=== PATIENT | female | born 1955 | race Caucasian/White ===

== ENCOUNTER 2020-01-15 08:18 | Outpatient (CLI) | payer OTHER, SELFPAY ==
[2020-01-15 08:57] LABS: Creatinine Urine 268.5 mg/dL
[2020-01-15 09:00] LABS: Basophils Absolute Auto 0.1 K/mm3 (0.0-0.1); Eosinophils Absolute Auto 0.3 K/mm3 (0-0.3); Hematocrit 48.5 % (37.0-47.0); Hemoglobin 16.9 g/dL (12.0-15.0); Immature Granulocyte Absolute 0.05 K/mm3 (0.00-0.031); Immature Granulocyte Percent A 0.6 % (0-0.5); Lymphocytes Absolute Auto 2.08 K/mm3 (0.9-3.2); Lymphocytes Percent Auto 25.3 % (18.3-44.2); Mean Corpuscular HGB Conc 34.8 g/dl (32-36); Mean Corpuscular Hemoglobin 30.8 pg (26-34); Mean Corpuscular Volume 88.3 fl (80-100); Mean Platelet Volume 9.8 fl (7.4-10.4); Monocytes Absolute Auto 0.6 K/mm3 (0.1-0.6); Monocytes Percent Auto 7.3 % (2.6-8.5); Neutrophils Absolute Auto 5.2 K/mm3 (1.3-6.7); Neutrophils Percent Auto 62.8 % (45.5-73.1); Platelet Count Result 339 k/mm3 (150-375); Red Blood Count 5.49 M/mm3 (4.2-5.4); Red Cell Distribution Width 12.3 % (11.5-14.5); White Blood Count 8.2 K/mm3 (4.5-10.0)
[2020-01-15 09:02] LABS: MALB Creatinine Ratio 56.4 mg/g (0-30); Microalbumin Urine Random 151.5 mg/L (0-16.7)
[2020-01-15 09:11] LABS: Hemoglobin A1C 9.6 % (<5.7)
[2020-01-15 09:12] LABS: Alanine Aminotransferase 12 U/L (4-35); Alkaline Phosphatase 97 U/L (38-126); Aspartate Amino Transferase 20 U/L (14-36); Bilirubin,Total 0.9 mg/dL (0.2-1.3); Blood Urea Nitrogen 13 mg/dL (7-17); Calcium 8.2 mg/dL (8.4-10.2); Carbon Dioxide 32 mmol/L (22-30); Chloride 92 mmol/L (98-107); Cholesterol 214 mg/dL (0-200); Creatine Kinase 54 U/L (30-135); Estimated Glomerular Filt Rate > 60; Glucose 285 mg/dL (65-105); HDL Direct 46 mg/dL; Potassium 3.3 mmol/L (3.4-5.0); Sodium 134 mmol/L (137-145); Triglycerides 227 mg/dL (<150); Uric Acid 6.1 mg/dL (2.5-7.5)
[2020-01-15 09:19] LABS: LDL Cholesterol Direct 132 mg/dL
[2020-01-15 10:03] LABS: Vitamin D 25 Hydroxy < 12.8 ng/mL
[2020-01-15 11:28] LABS: Free T4 Free Thyroxine Reflex 1.19 ng/dL (0.78-2.19)
[2020-01-15 12:45] LABS: Total Triiodothyronine (T3) 3.01 NG/ML (0.97-1.69)
[2020-01-15 15:52] LABS: Add Urine Microscopic? YES; Appearance Urine Clear (Clear); Bacteria Urine Trace /hpf; Bilirubin Urine Negative (Negative); Blood Urine Negative (Negative); Color Urine Yellow (Yellow); Glucose Urine UA 3+ mg/dL (Negative); Ketones Urine Negative (Negative); Leukocyte Esterase Ur Negative LEU/UL (Negative); Mucus Urine Rare /lpf; Nitrate Urine Negative (Negative); Protein Urine Negative (Negative); RBC Urine 0-2 /hpf (0-2); Specific Grav Ur 1.022 (1.001-1.035); Squamous Epithelial Cell Urine Few /hpf (Few); Urobilinogen Urine Negative mg/dL (<2.0)
== END 2020-01-15 08:19 | disposition home or self-care (01) ==
PROVIDERS: PCP Internal Medicine; Visit Provider Internal Medicine
DX: E78.00 Pure hypercholesterolemia, unspecified (principal); E11.9 Type 2 diabetes mellitus without complications; I10 Essential (primary) hypertension
CPT/HCPCS: 36415; 80053; 80061; 81001; 82043; 82306; 82550; 83036; 84439; 84443; 84480; 84550; 85025

== ENCOUNTER 2020-01-28 14:24 | Outpatient (CLI) | payer OTHER, SELFPAY ==
--- NOTE | ~2020-01-28 | MR_ITS ---
EXAMINATION: MR lumbar spine wo con DATE: 01/28/2020 16:39 INDICATION: Chronic bilateral low back pain with sciatica TECHNIQUE: Magnetic resonance imaging (MRI) of the lumbar spine was performed without intravenous con trast. Sequences included sagittal T2-weighted FSE, sagittal T2-weighted FS FSE, sagittal T1-weighted FSE, and axial T2-weighted FSE. COMPARISON: None FINDINGS: 2 mm retrolisthesis L5 on S1. Vertebral body heights are normal. Diffuse heterogeneous pattern of red and yellow marrow signal with T1 hyperintense hemangioma at L4. Mild disc desiccation without disc h eight loss at L2-L3 through L5-S1. The conus medullaris terminates at L1-L2. There is normal signal i n the caudal spinal cord. Paravertebral soft tissues are unremarkable. The following disc levels are specifically discussed: T12-L1: The disc does not extend beyond the endplate margin. There is minimal bilateral facet joint o steoarthritis. There is no neural foraminal stenosis. There is no central canal stenosis. L1-L2: The disc does not extend beyond the endplate margin. There is minimal bilateral facet joint os teoarthritis. There is no neural foraminal stenosis. There is no central canal stenosis. L2-L3: Disc is mildly bulging. There is mild right and minimal left facet joint osteoarthritis. There is mild bilateral neural foraminal stenosis. There is mild central canal stenosis. L3-L4: Disc is mildly bulging. There is hypertrophy of the ligamentum flavum. There is moderate bila teral facet joint osteoarthritis. There is mild bilateral, left greater than right neural foraminal s tenosis. There is moderate central canal stenosis. L4-L5: Disc is bulging with superimposed left foraminal zone annular fissure and disc extrusion. Ther e is hypertrophy of the ligamentum flavum. There is severe bilateral facet joint osteoarthritis. Ther e is mild right and moderate left neural foraminal stenosis. There is moderate to severe central almita l stenosis with minimal CSF signal surrounding the centrally clustered nerve roots. L5-S1: Annular fissure and broad-based disc extrusion extending from foraminal zone to foraminal zone with disc material extending up to 4 mm caudal to the level of the superior endplate of S1. There is moderate left and severe right facet joint osteoarthritis. There is mild left and moderate to severe right neural foraminal stenosis. There is mild central canal stenosis as well as mild stenosis of th e right lateral recess with some mass effect upon the traversing right S1 nerve roots. IMPRESSION: 1. Moderate lumbar spondylosis. Reviewed, dictated and finalized at location A.
== END 2020-01-28 14:25 | disposition home or self-care (01) ==
PROVIDERS: PCP Internal Medicine; Visit Provider Internal Medicine
DX: M54.42 Lumbago with sciatica, left side (principal); M54.41 Lumbago with sciatica, right side; G89.29 Other chronic pain; M47.816 Spondylosis without myelopathy or radiculopathy, lumbar region
CPT/HCPCS: 72148

== ENCOUNTER 2020-03-06 13:00 | Outpatient (RCR) | payer OTHER, SELFPAY ==
--- NOTE | 2019-12-13 14:08 | PTOPEVAL ---
PHYSICAL THERAPY EVALUATION AND PLAN OF CARE 12-13-2019 The PT evaluation was completed for the diagnosis of low back pain. The plan of treatment is scheduled for 2x/week for 4 weeks. Thank you for referring Ms. Marques to [facility]. Please review, sign, date and return this plan of care LIZBETH. I agree with and certify that the following plan of care is medically necessary. Referring Physician Date Attending Provider: Dr. Marcso Andrade *PT Outpatient Evaluation Start: 12/13/19 13:10 Freq: Status: Active Protocol: Document 12/13/19 13:11 REGINA (Rec: 12/13/19 14:01 REGINA [id number]) Outpatient Past Medical History Past Medical History Source of Past Medical History Patient Neurological History Hx Neurological Disorders No Significant History Cardiovascular History Hx Hypertension Yes: meds control Respiratory History Hx Respiratory Disorders No Significant History Gastrointestinal History Hx Gall Bladder Disease Yes: gall bladder removed Hx Gastric Bypass Surgery Yes: 1980 Genitourinary History Hx Genitourinary Disorders No Significant History Musculoskeletal History Hx Joint Replacement Yes: R TKR x 2;continues to have knee pain Hx Orthopedic Surgery Yes: L knee arthroscopy Endocrine History Hx Diabetes Yes: little numbness B feet/ neuropathy Other History Hx Other Surgeries Yes: obesity Evaluation Information Problem Diagnosis low back pain Onset Aug 2019 Subjective Information gradual increase in pain, no Query Text:As Reported By Patient/ trauma or injury to back; Family Diagnostic Tests X-Rays For This Problem Yes: per pt severe arthritis of back and pelvis Previous Treatments Previous Treatments For This Problem no PT for LBP Prior Level of Function Activity Level (Last 3 Months) 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
--- NOTE | 2020-01-10 14:41 | PTOPEVAL ---
PHYSICAL THERAPY RE-EVALUATION 01-10-2020 Ms. Marques has received 7 PT sessions, from December 12 to today, for the diagnosis of back pain. She called/canceled one appointment due to issues with her teeth. Compared with the initial eval: she has improved slightly with the strength of her R and L LE's and trunk; flexibility has improved- standing trunk extension no longer increases her pain, R hamstring length, L piriformis length and L anterior hip/quad length; reported pain rating at the highest rating has decreased from 10/10 to 5/10; reported sleeping tolerance is less, with walking and standing tolerances the same; She continues to be very guarded with movements and tightness with lumbar and hip motions. Her R knee continues to be painful. There is tenderness and spasms with palpation over L quadratus and B lower lumbar areas. Deana Lawrence has a follow up appointment next week. She wants to discuss her status with you and determine if PT is to continue or not. If PT is to continue, please give her a new script. Thank you for referring Jazmin Marques to [facility]. Please review, sign, date and return this progress report LIZBETH. I agree with and certify that the following plan of care is medically necessary. Referring Physician Date Attending Provider: Dr. Marcos Andrade Document 01/10/20 14:02 REGINA (Rec: 01/10/20 14:40 REGINA [id number]) Assessment Status Re-evaluation Subjective Information Deana Lawrence reports: at first, Query Text:As Reported By Patient/ therapy was helping, now not Family making a differnece with her back pain; is seeing the dr next week for a follow up and wants to see what he wants her to do; will let us know if he wants her to continue therapy or not; Pain Assessment Timing of Pain Assessment Timing of Pain Assessment Assessment Pain Scale Pain Scale Used Numeric (1 - 10) Self Report Pain Assessment Bilateral Back Reported Pain Level 4 Pain Description Tightness Pain Frequency Chronic Other Pain Description R and L lower lumbar Lowest Pain Intensity 4 Greatest Pain Intensity 5 Pain Aggravating Factors Exercise/Activity,Lifting Other Pain Aggravating Factors report tolerances:[id number] sec;walk 150';sleeping 2-3 hr /time Pain Relief Interventions Used By Ice,Inactivity/Rest Patient Other Alleviating Interventions sleep on L side; electrical stim; ALSO- continue to have R knee pain Additional Pain Comments have infected tooth,with pain and to have tooth pulled next week Pain Score Pain Score 4: Self Report Additional Pain Score Comments Electric
--- NOTE | 2020-01-22 11:34 | PTOPEVAL ---
PHYSICAL THERAPY RE-EVALUATION AND UPDATED PLAN OF CARE 01-22-2020 PT orders were received to continue PT treatments. Refer to the reevaluation dated 01-10-2020 for objective data for Ms. Marques. PT is to continue 2x/week for 4 weeks. Thank you for referring Jazmin Marques to [facility]. Please review, sign, date and return this plan of care LIZBETH. I agree with and certify that the following plan of care is medically necessary. Referring Physician Date Attending Provider: Dr. Marcos Andrade Document 01/22/20 10:47 REGINA (Rec: 01/22/20 11:30 REGINA [id number]) Therapy Assessment Status Assessment Status Assessment Status Re-evaluation Subjective Information Deana Lawrence reports: when saw lavonne Query Text:As Reported By Patient/ -going to schedule MRI, depend Family upon results-pain management or surgeon referral; started flexeril- helping pain; have been doing exercises and stretches at home; feels standing up straighter. Pain Assessment Timing of Pain Assessment Timing of Pain Assessment Assessment Pain Scale Pain Scale Used Numeric (1 - 10) Self Report Pain Assessment Bilateral Back Reported Pain Level 3 Pain Description Tightness Radicular Pain Location L lumbar tighter than R; back is tender; Pain Frequency Chronic Lowest Pain Intensity 2 Greatest Pain Intensity 3 Pain Relief Interventions Used By Ice,Medication Patient Other Alleviating Interventions flexeril, new med, ordered up to 3x/day, only taking 1x/, helping pain some Additional Pain Comments with sleeping, 2-3 hr at time, but getting better, last night was 5 hr Pain Score Pain Score 3: Self Report Lower Extremity Range of Motion General Lower Extremity Range of Motion Gross Lower Extremity Range of Motion supine stretching: hip flexion Comments , piriformis, ant hip R and L; Lower Extremity Muscle Strength Testing General Lower Extremity Strength Gross Lower Extremity Strength -recumbant stepper, all 4 extremities, resistance level 2, 5 minutes; - // bars: wobble board for posture education/ trunk stabilization - sit on ball: posture, pelvic circles, knee ext, hip flexion, with 1 UE support on mat - supine with ball under LE's:
--- NOTE | 2020-02-18 13:17 | PTOPEVAL ---
PHYSICAL THERAPY RE-EVALUATION AND UPDATED PLAN OF CARE 02-18-2020 Ms. Marques has received 15 PT sessions, from December 14 to today, for the diagnosis of back pain. Compared to the last reeval on 01-10-20: pain rating is worse at the high rating; reported sleeping tolerance is the same and standing tolerance 15 seconds longer; walking tolerance is the same; mat exercise reps for R and L hip and trunk have increased; B UE lifting increased by 2 #; flexibility with R and L hamstring, piriformis and ant hip/quad are the same; she continues to complain of R knee pain and muscle spasms over L lumbar area. Electrical stim, rest and ice are the main methods for her pain management. PT is to continue 2x/week for 4 weeks, to decrease her pain and increase flexibility and strength. Thank you for referring Jazmin Marques to [facility]. Please review, sign, date and return this plan of care LIZBETH. I agree with and certify that the following plan of care is medically necessary. Referring Physician Date Attending Provider: Dr. Marcos Andrade *PT Outpatient Re-Evaluation Document 02/18/20 12:30 REGINA (Rec: 02/18/20 13:17 REGINA [id number]) Therapy Assessment Status Assessment Status Assessment Status Re-evaluation Outpatient Past Medical History Past Medical History Source of Past Medical History Patient Neurological History Hx Neurological Disorders No Significant History Cardiovascular History Hx Hypertension Yes: meds control Respiratory History Hx Respiratory Disorders No Significant History Gastrointestinal History Hx Gall Bladder Disease Yes: gall bladder removed Hx Gastric Bypass Surgery Yes: 1980 Genitourinary History Hx Genitourinary Disorders No Significant History Musculoskeletal History Hx Joint Replacement Yes: R TKR x 2; Hx Orthopedic Surgery Yes: L knee arthrscopy Endocrine History Hx Diabetes Yes: little numbness B feet/ neuropathy Other History Hx Other Surgeries Yes: obesity Evaluation Information Problem Subjective Information Jazmin reports: do not yet Query Text:As Reported By Patient/ have appointment for pain Family management; pain never goes away--always hurts; am doing exercises at home; Pain Assessment Timing of Pain Assessment Timing of Pain Assessment Assessment Pain Scale Pain Scale Used Numeric (1 - 10) Self Report Pain Assessment Bilateral Back Reported Pain Level 4 Pain Description Tightness Pain Frequency Chronic Other Pain Description L > R lumbar- sacral Lowest Pain Intensity 3 Greatest Pain Intensity 8 Other Pain Aggravating Factors tolerances:stand less than 1 min;walk 150';sleep 2-3 hr/ time Other Alleviating Interventions out of prescription meds for
--- NOTE | 2020-02-28 09:47 | PCPTNOTE ---
pt called and cancelled to to illness .
--- NOTE | 2020-03-11 08:36 | PCPTNOTE ---
Patient called & cancelled scheduled appointment this date due to having insurance issues.
--- NOTE | 2020-03-13 12:47 | PCPTNOTE ---
This treatment is being continued on visit number [id number]. Please see documentation on both accounts to view progress. Completed interventions, outcomes, and problems have been marked as Inactive to facilitate the copying of the Care plan routine for recurring accounts.
== END 2020-03-12 23:59 | disposition home or self-care (01) ==
LOC: ANHPT 13:00
DX: M54.5 Low back pain (principal); G89.29 Other chronic pain
CPT/HCPCS: 97012; 97014; 97110; 97140; 97161; G0283

== ENCOUNTER 2020-03-17 16:02 | Outpatient (RCR) | payer OTHER, SELFPAY ==
--- NOTE | 2020-03-13 12:51 | PCPTNOTE ---
pt called and canceled today's appt;
--- NOTE | 2020-03-13 12:51 | PCPTNOTE ---
This treatment is being continued from visit number [id number]. Please see documentation on both accounts to view progress.
--- NOTE | 2020-03-17 09:55 | PCPTNOTE ---
pt called and canceled today's reeval, due to issues with her insurance; called pt, she is continuing to do her home exercises and is awaiting her new insurance to initiate coverage. She has not been able to see her dr either; discussed when she sees dr--determine if need more PT or not.
--- NOTE | 2020-04-08 08:52 | PCPTNOTE ---
PHYSICAL THERAPY DISCHARGE 04-08-2020 Attending Provider: Dr. Marcos Andrade Patient:Jazmin Marques Date of :1955 Ms. Marques has not returned for any further treatments since 03/06/2020, therefore she will be discharged at this time. She received 17 PT sessions, from December 12 to March 06 for the diagnosis of chronic low back pain and bilateral sciatica. Her insurance changed and she called and canceled PT treatments. The goals were not assessed. Thank you for referring Deana Lawrence to [facility]. Please review, sign, date and return this discharge summary LIZBETH. I have been updated about the patient's current status and I agree with discharge from the above service at this time. Referring Physician Date
== END 2020-04-08 14:22 | disposition home or self-care (01) ==
LOC: ANHPT 16:02
PROVIDERS: PCP Internal Medicine
DX: M54.41 Lumbago with sciatica, right side (principal); M54.42 Lumbago with sciatica, left side; G89.29 Other chronic pain
CPT/HCPCS: 99199

== ENCOUNTER 2021-04-08 14:51 | Outpatient (CLI) | payer MEDICARE, SELFPAY ==
--- NOTE | ~2021-04-08 | MM_ITS ---
EXAMINATION: MM screening lizzie BI w lainey HISTORY: Screening TECHNIQUE: Craniocaudal and mediolateral oblique 3-D tomosynthesis images were obtained and synthetic 2-D images were generated. CAD analysis was submitted and interpreted. COMPARISON: Comparison to multiple prior studies sequentially, with oldest reviewed study dated 12/02. BREAST PARENCHYMAL COMPOSITION: Breast composed of scattered areas of fibroglandular density. FINDINGS: There is a new cluster of indeterminate calcifications in the upper outer quadrant of the r ight breast, middle depth. The left breast is stable without evidence for malignancy. IMPRESSION: 1. Cluster of indeterminate calcifications upper outer quadrant of the right breast. 2. Magnification views are recommended. BI-RADS Category 0: Incomplete: Needs additional imaging evaluation. Reviewed, dictated and finalized at location A. IMPRESSION: 1. Cluster of indeterminate calcifications upper outer quadrant of the right br east. 2. Magnification views are recommended. BI-RADS Category 0: Incomplete: Needs additional imaging evaluation.
== END 2021-04-08 14:52 | disposition home or self-care (01) ==
LOC: ANHIMG 14:52
PROVIDERS: PCP Internal Medicine; Visit Provider Internal Medicine
DX: Z12.31 Encounter for screening mammogram for malignant neoplasm of breast (principal); R92.8 Other abnormal and inconclusive findings on diagnostic imaging of breast
CPT/HCPCS: 77063; 77067

== ENCOUNTER 2021-04-13 12:48 | Outpatient (CLI) | payer MEDICARE, SELFPAY | END 2021-04-13 12:49 | disposition home or self-care (01) | LOC: ANHAUDIO 12:50 | PROVIDERS: PCP Internal Medicine; Visit Provider Internal Medicine | DX: H90.0 Conductive hearing loss, bilateral (principal) | CPT/HCPCS: 92557; 92567 ==

== ENCOUNTER 2021-04-16 10:00 | Outpatient (CLI) | payer MEDICARE, SELFPAY ==
[2021-04-16 10:24] LABS: Anion Gap 12 mmol/L (8-16); Blood Urea Nitrogen 17 mg/dL (7-17); Calcium 7.6 mg/dL (8.4-10.2); Carbon Dioxide 30 mmol/L (22-30); Chloride 98 mmol/L (98-107); Estimated Glomerular Filt Rate 56; Glucose 191 mg/dL (65-110); Potassium 3.5 mmol/L (3.4-5.0); Sodium 140 mmol/L (137-145)
== END 2021-04-16 10:01 | disposition home or self-care (01) ==
LOC: ANHSURGERY 10:04
PROVIDERS: Anesthesiology; PCP Internal Medicine; Visit Provider Surgery
DX: Z01.812 Encounter for preprocedural laboratory examination (principal); E11.9 Type 2 diabetes mellitus without complications
CPT/HCPCS: 36415; 80048

== ENCOUNTER 2021-04-27 00:57 | Day surgery (SDC) | payer MEDICARE, SELFPAY ==
[2021-04-14 11:23] VITALS: BMI 41.6
[2021-04-27 10:17] VITALS: BP 122/75; PULSE 105; RESP 20; TEMP 36.4; O2SAT 96; BMI 40.7
[2021-04-27 10:36] LABS: Glucose Point of Care 196 mg/dl (65-105)
[2021-04-27] MEDS: LACTATED RINGERS 1,000 ML 30 ML IV CONT (10:36)
--- NOTE | 2021-04-27 10:57 | WPDANESEPPF ---
Anes - Initial Pre Proc Eval Procedure: Operation Date: 04/27/21 12:00 Proposed Procedures p Excision of Lipoma Inner Right Upper Arm - Gurvinder Fairchild MD Date/Time: 04/27/21 10:57 Surgeon: Gurvinder Fairchild MD Pre Op Diagnosis: right upper lipoma 5x3 cm Patient Data Age: 65 Gender: F Height: 1.63 m Weight: 107.6 kg Last Vital Signs Temp 36.4 C L 04/27/21 10:17 Pulse 105 H 04/27/21 10:17 Resp 20 04/27/21 10:17 BP 122/75 04/27/21 10:17 Pulse Ox 96 04/27/21 10:17 Allergies Allergy/AdvReac Type Severity Reaction Status Date / Time chlorzoxazone Allergy Unknown Rash, HIVES Verified 04/27/21 10:06 Home Medications Medication Instructions Recorded Confirmed Type duloxetine 60 mg capsule,delayed 60 mg PO HS 03/31/21 04/27/21 History release furosemide 40 mg tablet 40 mg PO QAM 03/31/21 04/27/21 History gabapentin 300 mg capsule 300 mg PO TID 03/31/21 04/27/21 History metformin 500 mg tablet,extended 1,500 mg PO QAM 03/31/21 04/27/21 History release 24hr potassium chloride 20 mEq 20 meq PO DAILY 03/31/21 04/27/21 History tablet,extended release diphenhydramine HCl [Benadryl] 25 mg PO TID PRN 04/14/21 04/27/21 History metoprolol succinate 50 mg PO QAM 04/14/21 04/27/21 History Laboratory Tests 04/27/21 10:34 POC Capillary Glucose 196 mg/dl H mg/dl (65-105) Patient hx anesthesia problems: none Family hx anesthesia problems: none Results Review: All pre-operative results and documents have been reviewed as part of the pre-operative evaluation. [facility] Past Medical History Medical History Depression Diabetes HTN (hypertension) Surgical History Surgical History H/O: hysterectomy History of appendectomy History of cholecystectomy History of tonsillectomy and adenoidectomy History of total right knee replacement S/P gastroplasty Family History Family History Father Hypertension Mother Liver cancer Sibling Hypertension Unknown Heart disease Kidney disease Social History Social History Social History: Caffeine use:none Smoking status: Never smoker Alcohol intake: never Substance use: never Living arrangements: with family Additional living arrangements comments: S.O. Additional occupation/education comments: Retired R.N. Spiritual care concerns: No Anes - Eval Final PreProcedure Day of Procedure 04/27/21 10:57 Patient weight: morbidly obese Heart: regular rate and rhythm Lungs: clear to auscultation Airway: Mallampati scale class II Neurological: alert and oriented Last oral intake: >/= 8 hours ASA classification: III Emergent: no Anesthetic plan: proceed Anesthesia type and monitoring: general LMA and standard monitoring Results Review: All pre-operative results and documents have been reviewed as part of the pre-operative evaluation. Informed Consent: The patient's anesthetic plan and its attendant risks and benefits were discussed with the patient/family/POA. Questions were solicited and answers provided to the satisfaction of the patient/family/POA.
--- NOTE | 2021-04-27 12:00 | SUR.PREOP ---
DR LUCAS HERE, ORDERED ANCEF 2GM
--- NOTE | 2021-04-27 12:04 | WPDHPUPDATE1 ---
History and Physical Update Update Date/Time: 04/27/21 12:04 History and Physical has been reviewed, including an updated exam of the patient. There are NO changes in the patient's condition. Risks, benefits, and alternatives have been discussed and questions answered. Patient agrees to proceed with procedure.
[2021-04-27] MEDS: ceFAZolin 2 GM/D5W 50 ML 2 GM/50 ML BAG IVPB (12:11)
[2021-04-27] MEDS: LIDO 2%/EPINEPHRINE 1:100,000 20 ML VIAL INFILTRATE (13:07)
[2021-04-27 13:32] VITALS: BP 155/81; PULSE 96; RESP 14
[2021-04-27 13:46] LABS: Glucose Point of Care 178 mg/dl (65-105)
--- NOTE | 2021-04-27 13:53 | P.OP_ITS ---
Procedure Note - Detailed Date of Procedure 04/27/21 Pre-op Diagnosis right upper lipoma 10 x 3.5 x 2.5 cm ( Subcutaneous mass ) Post-op Diagnosis same Procedure Performed Excision of subcutaneous mass upper medial right arm Surgeon Gurvinder Fairchild MD Veneer Press Operator BRISA Gerber, OR 1st assist Anesthesia general (GIVS) and local (2% xylocaine with epinephrine) Description of Procedure The patient was placed in the supine position. After a surgical time out confirming patient and procedure the patient was prepped and draped in the usual sterile fashion. Local anesthetic was administered subcutaneously along the line of proposed incision on the upper medial right arm. The lesion was somewhat indistinct with palpation but eventually was excised to measure 10.5 x 3.7 x 2.5 cm in size. It was a very lobulated lipoma within her subcutaneous fat of the thick portion of the right upper inner arm. A direct incision was made over the lesion/mass and I dissected down to the deep subcutaneous tissues and then completely excised the lesion using Bovie cautery. Bleeding was also controlled with electrocautery. The wound was closed in three layers. An un-dyed 2-0 Vicryl deep subcutaneous interrupted sutures, followed by some 3-0 deep dermal sutures and then followed by skin closure in a running fashion with a 4-0 undyed Monocryl running subcuticular closure was completed. Surgical glue applied as dressing. In order to put slight compression on it an David wrap was wrapped gently around it after the glue dried and a piece of Telfa, nonstick bandage, was laid on the wound prior to applying the David wrap. Some tape was applied to the patient's Right shoulder and down onto the David wrap to keep it from sliding down. Patient tolerated this well. Implants none Estimated Blood Loss -2.0 Drains No Packing No Pathology yes ( subcutaneous mass from upper inner right arm) Complications No immediate complications Condition stable Disposition same day
[2021-04-27 14:00] VITALS: BP 115/68; PULSE 93
--- NOTE | 2021-04-27 14:28 | SUR.PHASEII ---
Patient's vitals are stable. She is dressed and unhooked from the monitors just waiting on her ride.
== END 2021-04-27 14:33 | disposition home or self-care (01) ==
PROVIDERS: PCP Internal Medicine; Visit Provider Surgery
PROC: (CPT 24071; principal; 2021-04-27 12:00)
DX: D17.21 Benign lipomatous neoplasm of skin and subcutaneous tissue of right arm (principal); Z79.84 Long term (current) use of oral hypoglycemic drugs; F32.9 Major depressive disorder, single episode, unspecified; E11.9 Type 2 diabetes mellitus without complications; I10 Essential (primary) hypertension; E66.01 Morbid (severe) obesity due to excess calories; Z68.41 Body mass index [BMI] 40.0-44.9, adult
CPT/HCPCS: 24071; 36415; 80048; 82948; 88304; J0690; J2250; J2704; J3010; J7120

== ENCOUNTER 2021-05-21 12:56 | Outpatient (CLI) | payer MEDICARE, SELFPAY ==
--- NOTE | ~2021-05-21 | MMUS_ITS ---
EXAMINATION: MM diagnostic mammo unilat RT, US breast RT limited HISTORY: Cluster of indeterminate microcalcifications reported in upper outer quadrant of right breas t TECHNIQUE: ML view. Magnification ML, MLO and craniocaudal views. CAD analysis was submitted and inte rpreted. High resolution upper outer quadrant right breast ultrasound was performed. COMPARISON: 04/08/2021 bilateral screening mammogram 02/22/2013 bilateral screening mammogram FINDINGS: MAMMOGRAPHIC FINDINGS: There are multiple benign calcifications including calcified microhematomas and secretory calcificati ons right breast, particularly the upper outer quadrant. However, there are some indeterminate subtle grouped small granular appearing microcalcifications in the right upper outer quadrant. Stereotactic biopsy is recommended given the absence of sonographic c orrelate: ULTRASOUND: Upper outer quadrant right breast ultrasound examination reveals no suspicious mass or shadowing, cys t or other significant finding. IMPRESSION: 1. Indeterminate very small granular appearing microcalcifications in the upper outer quadrant of the right breast 2. Stereotactic biopsy is recommended BI-RADS category 4, suspicious findings. Dr. Jansen telephoned the report and surgical biopsy recommendation on 05/13/2021 at 1430 hours to Alfa Smith. Reviewed, dictated and finalized at location A. IMPRESSION: 1. Indeterminate very small granular appearing microcalcifications in the upper outer quadrant of the right breast 2. Stereotactic biopsy is recommended BI-RADS category 4, suspicious findings. Dr. Jansen telephoned the report and surgical biopsy recommendation on 05/13/2021 at 1430 hours to Alfa Smith.
== END 2021-05-21 12:57 | disposition home or self-care (01) ==
PROVIDERS: PCP Internal Medicine; Visit Provider Internal Medicine
DX: R92.1 Mammographic calcification found on diagnostic imaging of breast (principal)
CPT/HCPCS: 76642; 77065

== ENCOUNTER 2021-06-04 10:10 | Outpatient (CLI) | payer MEDICARE, SELFPAY ==
--- NOTE | ~2021-06-04 | MM_ITS ---
MM post biopsy diagnostic RT DATE: 06/04/2021 11:43 INDICATION: Stereotactic biopsy of upper outer quadrant microcalcifications TECHNIQUE: Digital ML and CC exposures following stereotactic biopsy COMPARISON: None FINDINGS: There is a biopsy marker in the area of microcalcifications of interest in the upper outer quadrant of the right breast. IMPRESSION: Successful stereotactic right breast biopsy of upper outer quadrant right breast microcal cifications Reviewed, dictated and finalized at Location A. Reviewed, dictated and finalized at location A. D PROPELLANT PROCESSOR IMPRESSION: Successful stereotactic right breast biopsy of upper outer quadrant right breast microcalcifications
--- NOTE | ~2021-06-04 | MM_ITS ---
EXAMINATION: MM stereotactic bx RT, Specimen Radiograph, Tissue Marker Clip Placement, Unilateral Alexandra mogram DATE: 06/04/2021 11:41 INDICATION: Abnormal mammogram: Upper outer quadrant right breast microcalcifications. TECHNIQUE AND FINDINGS: The risks and potential benefits of the procedure were discussed with the patient and written informe d consent was obtained. Timeout procedure was performed. The patient was placed in the prone position on the dedicated stereotactic table with the right breast in lateromedial compression, and the area of interest was localized and targeted utilizing digital imaging with stereotaxis. After sterile preparation of the skin, 1% lidocaine was utilized for local anesthesia at the skin pun cture site and 1% lidocaine with epinephrine was utilized for deeper local anesthesia/is about the bi opsy site. A 9G [employer] vacuum assisted biopsy needle was advanced to the level of the calcification o f interest from a lateral approach utilizing stereotactic guidance and a total of 13 tissue core biop sies were obtained. A specimen radiograph demonstrates that the calcifications of interest are included within the tissue cores. A tissue marker clip was then placed at the biopsy site. A digital mammographic exposure co nfirmed the successful deployment of the biopsy marker. The needle was removed and hemostasis was ac hieved. A sterile bandage was applied. The patient tolerated the procedure well and there is no sreekanth dence of significant immediate complication. The patient was given verbal as well as written postpro cedural instructions prior to discharge from the department. Tissue cores were submitted to surgical pathology for histologic analysis. A 2-view right unilateral digital mammogram was obtained post procedure, demonstrating the tissue mar ker clip in expected position. IMPRESSION: 1. Successful stereotactic biopsy of upper outer quadrant microcalcifications, followed by tissue m arker clip placement. Please refer to pathology report for histologic analysis. Reviewed, dictated and finalized at [facility]. Reviewed, dictated and finalized at location A. FORMING MACHINE SET UP OPERATOR IMPRESSION: 1. Successful stereotactic biopsy of upper outer quadrant microcalcifications , followed by tissue marker clip placement. Please refer to pathology report f or histologic analysis.
--- NOTE | ~2021-06-04 | MM_ITS ---
MM stereotactic specimen RT DATE: 06/04/2021 11:42 INDICATION: Right upper outer quadrant microcalcifications TECHNIQUE: Single mammographic exposure of stereotactic biopsy specimen tissue COMPARISON: 05/21/2021 diagnostic right mammogram FINDINGS: Numerous microcalcifications of interest are present in the specimen tissue. IMPRESSION: Successful stereotactic biopsy yielding numerous microcalcifications of interest from upp er outer quadrant Reviewed, dictated and finalized at [facility]. Reviewed, dictated and finalized at location A. ESS PREPARER IMPRESSION: Successful stereotactic biopsy yielding numerous microcalcification s of interest from upper outer quadrant
== END 2021-06-04 10:11 | disposition home or self-care (01) ==
PROVIDERS: PCP Internal Medicine; Visit Provider Surgery
DX: R92.8 Other abnormal and inconclusive findings on diagnostic imaging of breast (principal)
CPT/HCPCS: 19081; 77065; 88305; 88342; A4648

== ENCOUNTER 2021-06-15 10:38 | Outpatient (CLI) | payer MEDICARE, SELFPAY ==
--- NOTE | 2021-06-15 10:44 | ECG_ITS ---
Measurements Intervals [place] Rate: 85 P: -2 KS: 125 QRS: 24 QRSD: 85 T: 26 QT: 367 QTc: 438 Interpretive Statements SINUS RHYTHM WITH SINUS ARRHYTHMIA DELAYED PRECORDIAL R/S TRANSITION LOW QRS VOLTAGE IN PRECORDIAL LEADS BASELINE ARTIFACT- I, II, III, AVR, AVL, AVF BORDERLINE ECG Electronically Signed On 06-15-2021 10:55:47 JOB SPOTTER by Wilfredo Honeycutt D.O.
[2021-06-15 11:22] LABS: Alanine Aminotransferase 12 U/L (4-35); Albumin Level 4.1 g/dL (3.5-5.1); Alkaline Phosphatase 85 U/L (38-126); Anion Gap 7 mmol/L (8-16); Aspartate Amino Transferase 21 U/L (14-36); Blood Urea Nitrogen 17 mg/dL (7-17); Calcium 8.4 mg/dL (8.4-10.2); Carbon Dioxide 36 mmol/L (22-30); Chloride 92 mmol/L (98-107); Estimated Glomerular Filt Rate 56; Glucose 204 mg/dL (65-110); Potassium 3.9 mmol/L (3.4-5.0); Sodium 135 mmol/L (137-145)
[2021-06-15 11:32] LABS: Basophils Absolute Auto 0.1 K/mm3 (0.0-0.1); Basophils Percent Auto 1.1 % (0.2-1.2); Eosinophils Absolute Auto 0.4 K/mm3 (0-0.3); Eosinophils Percent Auto 4.4 % (0-4.4); Hematocrit 44.6 % (37.0-47.0); Hemoglobin 15.3 g/dL (12.0-15.0); Immature Granulocyte Absolute 0.04 K/mm3 (0.00-0.031); Immature Granulocyte Percent A 0.4 % (0-0.5); Lymphocytes Absolute Auto 2.16 K/mm3 (0.9-3.2); Lymphocytes Percent Auto 22.6 % (18.3-44.2); Mean Corpuscular HGB Conc 34.3 g/dl (32-36); Mean Corpuscular Volume 90.5 fl (80-100); Mean Platelet Volume 9.8 fl (7.4-10.4); Monocytes Absolute Auto 0.5 K/mm3 (0.1-0.6); Neutrophils Absolute Auto 6.4 K/mm3 (1.3-6.7); Neutrophils Percent Auto 66.5 % (45.5-73.1); Platelet Count Result 388 k/mm3 (150-375); Red Blood Count 4.93 M/mm3 (4.2-5.4); Red Cell Distribution Width 12.5 % (11.5-14.5); White Blood Count 9.6 K/mm3 (4.5-10.0)
== END 2021-06-15 10:39 | disposition home or self-care (01) ==
LOC: ANHSURGERY 10:41
PROVIDERS: PCP Internal Medicine; Visit Provider Surgery
DX: D05.11 Intraductal carcinoma in situ of right breast (principal); I10 Essential (primary) hypertension; Z01.818 Encounter for other preprocedural examination; R94.31 Abnormal electrocardiogram [ECG] [EKG]
CPT/HCPCS: 36415; 80053; 85025; 93005

== ENCOUNTER 2021-06-22 01:18 | Day surgery (SDC) | payer MEDICARE, SELFPAY ==
[2021-06-10 14:20] VITALS: BMI 40.5
--- NOTE | 2021-06-10 14:26 | PC.NURSE ---
Report to the Outpatient Waiting Room, entrance under the green pavilion located off [facility], at time __0900 on date _06/22/21 . OR Time: _1200 . NEEDLE LOC AT 0930 - You and your visitor will be asked a series of questions to screen for COVID 19 for your protection. - A mask is required within the hospital. - Only one visitor is allowed at this time. Patient visitors will be guided where to wait when not with patient. Preoperative COVID Testing Requirements: No COVID Test needed if: (proof is required; if not received patient will have Rapid Test prior to entry) - Patient has received COVID Vaccine at least 14 days prior to procedure date or - Patient has positive COVID test result within last 90 days of surgery date. COVID Test needed if above criteria is not met If not COVID vaccinated a COVID test must be conducted within 72 hours of surgery and patient is asked to isolate self from time of testing until procedure. You will go to the [facility] for your COVID testing. The [facility] is located at the corner of [address] [facility]. You will only be called if COVID results are positive and your surgeon may reschedule your elective surgery date. Patients may have clear liquids (water, carbonated beverages, clear teas, apple juice) until 3 hours prior to surgery with a maximum of 20 ounces. - No food from midnight until time of surgery - Infants may have breast milk until 4 hours before surgery, formula 6 hours prior to surgery. - Children will be allowed to drink immediately following surgery. If applicable, please bring a bottle or sippy cup to assist with drinking. Juice, water, soda, and popsicles are readily available. For infants on formula, please bring formula the day of surgery. Pacifiers are allowed. Take the following medications with a SIP of water the morning of surgery: ___GABAPENTIN,METOPROLOL Medications to discontinue per physician _NONE Date to take last dose Please no make-up, nail maltese, hairspray, perfume, deodorant, or body powder the day of surgery. No jewelry (including any body piercings) or valuables the day of surgery, leave them at home. Please take a shower or bath the night before, or the morning of, surgery with an antibacterial soap. Wear comfortable, loose fitting clothing. Children are encouraged to wear pajamas. - Jewelry must be removed prior to entering the operating room. Rings and piercings that are not removed may be cut off. - The hospital will not accept responsibility for valuables. - Please leave all valuables, including medications, at home the day of surgery. HIBICLENS SHOWER MORNING OF SURGERY If you are going home after surgery, a licensed high lift driver must drive you home. - NO public transportation without another adult. - We recommend that an adult stay with you for 24 hours following discharge. - We also recommend that you do not drive, make important decision, drink alcoholic beverages, or take any drugs that were not prescribed by your health care provider for at least 24 hours after your discharge time. For Pediatric surgeries, we recommend two adults accompany the child home (only one inside the building at this time). Follow any additional instructions given to you from your surgeon. Telephone instructions given to __PATIENT and asked if any additional questions and then verbalized understanding. Patient advised to call surgeon office or pre surgery nurse liaison [phone] if any additional questions.
[2021-06-22] VITALS (8 sets, daily range): BP systolic 117–156; BP diastolic 3–94; PULSE 82–105; RESP 9–18; TEMP 36.6–37.6; O2SAT 94–100
--- NOTE | ~2021-06-22 | MM_ITS ---
MM surgical specimen RT DATE: 06/22/2021 13:11 INDICATION: Surgical excision of area of biopsy marker, upper outer right breast, following preoperat seema mammographically guided wire localization TECHNIQUE: Single noncompression digital mammographic exposure of the surgical right breast soft tiss ue specimen COMPARISON: 06/22/2021 preoperative mammographic localization images of right breast FINDINGS: The wire and biopsy marker present within the surgical soft tissue specimen. IMPRESSION: Successful surgical excision of biopsy marker Reviewed, dictated and finalized at [facility]. Reviewed, dictated and finalized at location A. BALL PLAYER
--- NOTE | ~2021-06-22 | MM_ITS ---
EXAMINATION: MM needle loc RT HISTORY: Preoperative mammographically guided wire localization of right upper outer quadrant breast biopsy marker TECHNIQUE: The purpose of the procedure, technique and potential complications were discussed with e patient. The patient verbalized understanding and gave consent. Timeout procedure confirmed proper patient, procedure and breast. The right breast was placed in craniocaudal compression with a biopsy grid over the upper aspect of t he right breast. The biopsy marker in the upper outer quadrant of the right breast was mammographical ly evident. Using coordinates on the biopsy grid, the area for percutaneous access was identified. e skin was prepared with sterile Betadine. 1% lidocaine local anesthetic was administered to the skin . Subsequently a 5 cm [employer] needle was directed toward the biopsy marker from a superior faviola mittal. Craniocaudal and mediolateral exposures revealed the needle in appropriate position. The wire was engaged through the tip of the needle. Final ML and craniocaudal images were obtained, confirming the wire in intimate position with respect to the biopsy marker in the upper outer quadrant. The patient was very cooperative and tolerated the procedure well, without complaint or apparent comp lication. COMPARISON: 06/04/2021ight mammogram following stereotactic biopsy IMPRESSION: Successful preoperative mammographically guided wire localization of upper outer quadrant right breas t biopsy marker Reviewed, dictated and finalized at location A. BALL MARKER IMPRESSION: Successful preoperative mammographically guided wire localization of upper oute r quadrant right breast biopsy marker
[2021-06-22] MEDS: ACETAMINOPHEN 500 MG TABLET 1000 MG PO (09:21)
[2021-06-22] MEDS: LACTATED RINGERS 1,000 ML 30 ML IV CONT ×2 (09:27→13:37)
[2021-06-22] MEDS: KETOROLAC 15 MG/ML VIAL (*BKC) IV PUSH (09:37)
[2021-06-22 09:48] LABS: Glucose Point of Care 202 mg/dl (65-105)
--- NOTE | 2021-06-22 10:58 | SUR.PREOP ---
patient to nuclear med for needle loc at 1000,returned to room 1045.
--- NOTE | 2021-06-22 11:41 | WPDANESEPPF ---
Anes - Initial Pre Proc Eval Procedure: Operation Date: 06/22/21 12:00 Proposed Procedures p Excision of Right Breast Ductal Carcinoma in Situ with Ultrasound and/or Mammogram Guided Needle Localization - Gurvinder aFirchild MD Date/Time: 06/22/21 11:41 Surgeon: Gurvinder Fairchild MD Pre Op Diagnosis: rt breast ductal carcinoma in situ Patient Data Age: 65 Gender: F Height: 1.63 m Weight: 107.4 kg Last Vital Signs Temp 36.8 C 06/22/21 09:03 Pulse 105 H 06/22/21 09:03 Resp 16 06/22/21 09:03 BP 156/94 H 06/22/21 09:03 Pulse Ox 100 06/22/21 09:03 Allergies Allergy/AdvReac Type Severity Reaction Status Date / Time chlorzoxazone Allergy Unknown Hives Verified 06/22/21 09:11 Home Medications Medication Instructions Recorded Confirmed Type duloxetine 60 mg capsule,delayed 60 mg PO HS 03/31/21 06/22/21 History release furosemide 40 mg tablet 40 mg PO QAM 03/31/21 06/22/21 History gabapentin 300 mg capsule 300 mg PO TID 03/31/21 06/22/21 History metformin 500 mg tablet,extended 1,500 mg PO QAM 03/31/21 06/22/21 History release 24hr potassium chloride 20 mEq 20 meq PO DAILY 03/31/21 06/22/21 History tablet,extended release diphenhydramine HCl [Benadryl] 25 mg PO TID PRN 04/14/21 06/22/21 History metoprolol succinate 50 mg PO QAM 04/14/21 06/22/21 History Laboratory Tests 06/22/21 09:35 POC Capillary Glucose 202 mg/dl H mg/dl (65-105) Patient hx anesthesia problems: none Family hx anesthesia problems: none Results Review: All pre-operative results and documents have been reviewed as part of the pre-operative evaluation. 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 HTN (hypertension) Surgical History Surgical History H/O excision of mass 04/27/21 Excision of subcutaneous mass upper medial right arm H/O: hysterectomy History of appendectomy History of breast biopsy 06/04/21 History of cholecystectomy History of tonsillectomy and adenoidectomy History of total right knee replacement S/P gastroplasty Family History Family History Father Hypertension Mother Liver cancer Sibling Hypertension Unknown Heart disease Kidney disease Social History Social History Social History: Caffeine use:none Smoking status: Never smoker Alcohol intake: never Substance use: never Living arrangements: with family Additional living arrangements comments: S.O. Additional occupation/education comments: Retired R.N. Spiritual care concerns: No Anes - Eval Final PreProcedure Day of Procedure 06/22/21 11:41 Patient weight: morbidly obese Heart: regular rate and rhythm Lungs: clear to auscultation Airway: Mallampati scale class II Neurological: alert and oriented Last oral intake: >/= 8 hours ASA classification: III Emergent: no Anesthetic plan: proceed Anesthesia type and monitoring: general LMA and standard monitoring Results Review: All pre-operative results and documents have been reviewed as part of the pre-operative evaluation. Informed Consent: The patient's anesthetic plan and its attendant risks and benefits were discussed with the patient/family/POA. Questions were solicited and answers provided to the satisfaction of the patient/family/POA.
--- NOTE | 2021-06-22 12:17 | WPDHPUPDATE1 ---
History and Physical Update Update Date/Time: 06/22/21 12:17 History and Physical has been reviewed, including an updated exam of the patient. There are NO changes in the patient's condition. Risks, benefits, and alternatives have been discussed and questions answered. Patient agrees to proceed with procedure.
[2021-06-22] MEDS: ceFAZolin 2 GM/D5W 50 ML 2 GM/50 ML BAG IVPB (12:21)
[2021-06-22] MEDS: LIDO 2%/EPINEPHRINE 1:100,000 20 ML VIAL INFILTRATE (13:14)
[2021-06-22 13:49] LABS: Glucose Point of Care 175 mg/dl (65-105)
--- NOTE | 2021-06-22 16:04 | W.PM.PROC2 ---
Procedure Note - Detailed Date of Procedure 06/22/21 Pre-op Diagnosis Rt. breast ductal carcinoma in situ, with comedo-necrosis (Upper outer quadrant status post core biopsy) Post-op Diagnosis same Procedure Performed Needle localized right breast lumpectomy, upper outer quadrant Surgeon Gurvinder Fairchild MD Other Sales Support Worker BRISA Jensen, OR 1st assist Anesthesia general and local ( 2% xylocaine with epinephrine) Indications this patient had recent mammogram which showed concerning microcalcifications and an area of architectural distortion. Subsequently, she had a needle core biopsy guided by ultrasound which showed no signs of micro invasion or invasion but ductal carcinoma in Situ with comedo-necrosis. Her separate were done on the abnormal cells showing 99% positive ER and WI levels. Therefore, the risks benefits and possible complications of complete excision with a normal margin of breast tissue around these abnormalities were recommended. Patient may be also recommended later to consider whole breast radiation to both sides and/or hormone manipulation therapy. After thorough discussion the patient selected this versus elective total mastectomy. Findings Fairly normal appearing breast tissue in the area of excision. Several islands of some fibrosis were identified at the edges of the excision margins. Description of Procedure The patient was seen preoperatively in the holding area, and I marked the patient on the operative side. (Right). She was brought to the operating room and anesthesia delivered. She was prepped and draped in the usual sterile fashion. A timeout was performed confirming patient and site of surgery. The localizing wire was noted to be entering the right breast in the fairly lateral upper outer quadrant. An incision was made along skin lines through the area of the wire and the tissue surrounding the wire -- after I dissected down about 1-2 cm's --- was removed widely with electrocautery. I dissected a widening cone of breast tissue down around the wire in order to excise as much of the surrounding microcalcifications as possible as seen on her post localization mammogram. I carefully used retractors to expose the lumpectomy specimen as we lifted it with the Allis forceps up and out of the breast. A carefully performed the excision well referring to the provided post wire localization mammograms from her preop needle localization. The specimen was oriented with a long suture lateral and short suture superior and sent for specimen mammogram. I specifically had the nurse note that the wire was entering the specimen somewhat anterior laterally. I did not send the breast tissue for fresh tissue exam immediate report requesteed at pathology. It was however placed on a grid and sent to [facility]. After about 5 minutes the mammogram department called back stating that the wire clip and microcalcifications were within the specimen and that the clip and end of the wire were in about the central portion of the specimen. The wound was irrigated With sterile water, hemostased, and closed in 2 layers with 3-0 and a dyed Vicryl and a running subcuticular closure of 4-0 Monocryl. Surgical glue was applied to the wound. All counts were correct at the end of the case. Specimen mammogram was called back adequate by the radiologist containing a clip, wire, and the abnormality. The patient tolerated the procedure well and was discharged to the recovery room in stable condition. Implants none Estimated Blood Loss 10 Drains No Packing No Pathology yes ( a single breast specimen surrounding a localization wire from the upper outer quadrant of the right breast.) Complications No immediate complications Condition stable Disposition PACU
== END 2021-06-22 15:45 | disposition home or self-care (01) ==
PROVIDERS: PCP Internal Medicine; Visit Provider Surgery
PROC: (CPT 19301; principal; 2021-06-22 12:00)
DX: D05.11 Intraductal carcinoma in situ of right breast (principal); N60.31 Fibrosclerosis of right breast; N64.1 Fat necrosis of breast; R92.0 Mammographic microcalcification found on diagnostic imaging of breast; F32.9 Major depressive disorder, single episode, unspecified; I10 Essential (primary) hypertension; Z90.49 Acquired absence of other specified parts of digestive tract; Z79.84 Long term (current) use of oral hypoglycemic drugs; E11.9 Type 2 diabetes mellitus without complications
CPT/HCPCS: 19301; 19281; 36415; 76098; 80053; 82948; 85025; 88307; 93005; A9270; C1769; J0690; J1100; J1885; J2405; J2704; J3010; J7120

== ENCOUNTER 2021-08-13 11:11 | Outpatient (CLI) | payer MEDICARE, SELFPAY ==
[2021-08-13 11:41] LABS: Anion Gap 10 mmol/L (8-16); Blood Urea Nitrogen 20 mg/dL (7-17); Calcium 8.4 mg/dL (8.4-10.2); Carbon Dioxide 33 mmol/L (22-30); Chloride 95 mmol/L (98-107); Estimated Glomerular Filt Rate 55; Glucose 222 mg/dL (65-110); Potassium 3.6 mmol/L (3.4-5.0); Sodium 138 mmol/L (137-145)
== END 2021-08-13 11:12 | disposition home or self-care (01) ==
LOC: ANHSURGERY 11:14
PROVIDERS: Anesthesiology; PCP Internal Medicine; Visit Provider Surgery
DX: Z01.812 Encounter for preprocedural laboratory examination (principal); E11.9 Type 2 diabetes mellitus without complications
CPT/HCPCS: 36415; 80048

== ENCOUNTER 2021-08-18 01:40 | Day surgery (SDC) | payer MEDICARE, SELFPAY ==
[2021-08-11 14:05] VITALS: BMI 40.5
--- NOTE | 2021-08-11 14:13 | PC.NURSE ---
Report to the Outpatient Waiting Room, entrance under the green pavilion located off [facility], at time _1130 AM__ on date _08/18/21_. OR Time: _1:30 PM__. - You and your visitor will be asked a series of questions to screen for COVID 19 for your protection. - A mask is required within the hospital. - NO visitors are allowed at this time. Patient visitors will be guided where to wait when not with patient. Preoperative COVID Testing Requirements: No COVID Test needed if: (proof is required; if not received patient will have Rapid Test prior to entry) - Patient has received COVID Vaccine at least 14 days prior to procedure date or - Patient has positive COVID test result within last 90 days of surgery date. COVID Test needed if above criteria is not met If not COVID vaccinated a COVID test must be conducted within 72 hours of surgery and patient is asked to isolate self from time of testing until procedure. You will go to the [facility] for your COVID testing. The [facility] is located at the corner of [address] [facility]. You will only be called if COVID results are positive and your surgeon may reschedule your elective surgery date. Patients may have clear liquids (water, carbonated beverages, clear teas, apple juice) until 3 hours prior to surgery with a maximum of 20 ounces. (1030 AM) - No food from midnight until time of surgery - Infants may have breast milk until 4 hours before surgery, infant formula 6 hours prior to surgery. - Children will be allowed to drink immediately following surgery. If applicable, please bring a bottle or sippy cup to assist with drinking. Juice, water, soda, and popsicles are readily available. For infants on formula, please bring formula the day of surgery. Pacifiers are allowed. Take the following medications with a SIP of water the morning of surgery: _GABAPENTIN, METOPROLOL___ Medications to discontinue per physician ____VIT D 3 - 3 DAYS PRIOR TO SURGERY Date to take last dose 08/14/21 Please no make-up, nail faroese, hairspray, perfume, deodorant, or body powder the day of surgery. No jewelry (including any body piercings) or valuables the day of surgery, leave them at home. Please take a shower or bath the night before, or the morning of, surgery with an antibacterial soap. Wear comfortable, loose fitting clothing. Children are encouraged to wear pajamas. - Jewelry must be removed prior to entering the operating room. Rings and piercings that are not removed may be cut off. - The hospital will not accept responsibility for valuables. - Please leave all valuables, including medications, at home the day of surgery. If you are going home after surgery, a licensed school bus driver must drive you home. - NO public transportation without another adult. - We recommend that an adult stay with you for 24 hours following discharge. - We also recommend that you do not drive, make important decision, drink alcoholic beverages, or take any drugs that were not prescribed by your health care provider for at least 24 hours after your discharge time. For Pediatric surgeries, we recommend two adults accompany the child home (only one inside the building at this time). Follow any additional instructions given to you from your surgeon. FINESSE SHOWTABITHA AM OF SURGERY Telephone instructions given to ____PT and asked if any additional questions and then verbalized understanding. Patient advised to call surgeon office or pre surgery nurse liaison [phone] if any additional questions.
--- NOTE | 2021-08-17 12:54 | WPDANESEPPF ---
Anes - Initial Pre Proc Eval Procedure: Operation Date: 08/18/21 12:00 Proposed Procedures p Re-Excision of Ductal Carcinoma In situ Upper Outer Quadrant of Right Breast with Frozen Sections - Gurvinder Fairchild MD Date/Time: 08/17/21 12:54 Surgeon: Gurvinder Fairchild MD Pre Op Diagnosis: Ductal Carcinoma Insutu Right Breast Patient Data Age: 66 Gender: F Height: 1.63 m Weight: 107.2 kg Allergies Allergy/AdvReac Type Severity Reaction Status Date / Time chlorzoxazone Allergy Unknown Hives Verified 08/11/21 14:04 Home Medications Medication Instructions Recorded Confirmed Type duloxetine 60 mg capsule,delayed 60 mg PO HS 03/31/21 08/11/21 History release furosemide 40 mg tablet 40 mg PO QAM 03/31/21 08/11/21 History gabapentin 300 mg capsule 300 mg PO TID 03/31/21 08/11/21 History metformin 500 mg tablet,extended 1,500 mg PO QAM 03/31/21 08/11/21 History release 24hr potassium chloride 20 mEq 20 meq PO DAILY 03/31/21 08/11/21 History tablet,extended release diphenhydramine HCl [Benadryl] 25 mg PO TID PRN 04/14/21 08/11/21 History metoprolol succinate 50 mg PO QAM 04/14/21 08/11/21 History atorvastatin 20 mg PO DAILY 07/02/21 08/11/21 History cholecalciferol (vitamin D3) 125 mcg PO DAILY 07/02/21 08/11/21 History [Vitamin D3] dicloxacillin 500 mg capsule 500 mg PO Q6H #20 cap 07/31/21 08/11/21 Rx Patient hx anesthesia problems: none Family hx anesthesia problems: none Results Review: All pre-operative results and documents have been reviewed as part of the pre-operative evaluation. 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 HTN (hypertension) Surgical History Surgical History H/O excision of mass 04/27/21 Excision of subcutaneous mass upper medial right arm H/O: hysterectomy History of appendectomy History of breast biopsy 06/04/21 History of cholecystectomy History of tonsillectomy and adenoidectomy History of total right knee replacement S/P gastroplasty Family History Family History Father Hypertension Mother Liver cancer Sibling Hypertension Unknown Heart disease Kidney disease Social History Social History Social History: Caffeine use:none Smoking status: Never smoker Second hand tobacco smoke exposure: No Alcohol intake: never Substance use: never Substance use type: does not use Living arrangements: with friend(s) Additional living arrangements comments: S.O. Additional occupation/education comments: Retired R.N. Spiritual care concerns: No Anes - Eval Final PreProcedure Day of Procedure 08/17/21 12:54 Patient weight: morbidly obese Heart: regular rate and rhythm Lungs: clear to auscultation and normal air movement Airway: Mallampati scale class II Neurological: alert and oriented Last oral intake: >/= 8 hours ASA classification: III Emergent: no Anesthetic plan: proceed Anesthesia type and monitoring: general LMA Results Review: All pre-operative results and documents have been reviewed as part of the pre-operative evaluation. Informed Consent: The patient's anesthetic plan and its attendant risks and benefits were discussed with the patient/family/POA. Questions were solicited and answers provided to the satisfaction of the patient/family/POA.
[2021-08-18] VITALS (9 sets, daily range): BP systolic 113–146; BP diastolic 59–81; PULSE 83–91; RESP 10–20; TEMP 36.1–36.8; O2SAT 94–100
[2021-08-18] MEDS: LACTATED RINGERS 1,000 ML 30 ML IV CONT ×2 (10:40→13:15)
[2021-08-18] MEDS: KETOROLAC 15 MG/ML VIAL (*BKC) IV PUSH (10:47)
[2021-08-18] MEDS: ACETAMINOPHEN 500 MG TABLET 1000 MG PO (10:47)
[2021-08-18 11:01] LABS: Glucose Point of Care 210 mg/dl (65-105)
--- NOTE | 2021-08-18 11:58 | P.HPUP_ITS ---
History and Physical Update Update Date/Time: 08/18/21 11:58 History and Physical has been reviewed, including an updated exam of the patient. There are NO changes in the patient's condition. She is having no drainage from the upper outer Rt. breast incisions site. There is no sign of inf ection at the Rt. breast site. Risks, benefits, and alternatives have been discussed and questions answered. Patient agrees to proceed with procedure.
[2021-08-18] MEDS: ceFAZolin 2 GM/D5W 50 ML 2 GM/50 ML BAG IVPB (12:05)
[2021-08-18] MEDS: BUPIVACAINE/EPINEPHRINE 0.25% 10 ML VIAL INFILTRATE (12:13)
--- NOTE | 2021-08-18 13:21 | W.PM.PROC2 ---
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 right breast, re-excision of inferior margin of previous right lumpectomy cavity (upper outer quadrant right breast). Surgeon Gurvinder Fairchild MD Glass Finisher Jimmy LEDEZMA, OR bookkeeping assistant Anesthesia general Indications Patient is approximately 1-2 months status post wide local excision of ductal carcinoma in Situ in the upper outer quadrant of her right breast with a needle localized lumpectomy. Pathology showed negative margins except for the inferior margin. She has been seen by radiation oncology and felt to be a candidate for whole breast breast radiation once there are negative margins. The patient then came to me for consideration of re-excision of the inferior margin. However, in the interim she developed a small amount of infection and some fluid leakage at the lateral corner of her previous incision. This was treated with antibiotics and has cleared. She now presents for re-excision of a positive margin for ductal carcinoma in Situ right breast. Findings 1. Normal appearing scar in the upper outer cautery quadrant of the right breast 2. Shiny circular lumpectomy cavity after opening this through the old skin scar. 3. 4-5 cc of clear serous fluid within the old lumpectomy cavity 4. Unremarkable fatty breast tissue deep to the previous circumferential half of the inferior margin previous Rt. Breast lumpectomy cavity. Description of Procedure The patient was seen preoperatively in the holding area, and I marked the patient on the operative side. She was brought to the operating room and anesthesia delivered. She was prepped and draped in the usual sterile fashion. A timeout was performed confirming patient and site of surgery. . The scar from the previous excision was noted to be on the right breast in the upper outer quadrant. A very narrow curvilinear incision was made around the previous scar and the scar and a minor amount of underlying tissue was excised and sent for permanent sectioning with a long suture marking the lateral side and a short suture marking the superior side of this skin ellipse of the previous lumpectomy scar. is noted to be approximately 0.5 cm of further subcutaneous tissue between this excision and the underlying cavity from the previous lumpectomy. I carefully incised directly through this straight down into the cavity. This was done with Bovie cautery. I was then looking directly into the showing the cavity there was about 5 cc of clear fluid that was within the scabbing this was suctioned away. I then planned my excision of the inferior aspect of the old lumpectomy cavity. I then put 2 allis's is on the subcutaneous tissue inferiorly on the superficial edge of the wound. then use using the needle-tip cautery used to score the cavity superficial laterally down across up to superficial medially. This divided the cavity and half I then started the excision of the inferior margin by again using the cautery obtaining about a 1 cm area of tissue maintaining this in depth this NM circular manner completely sizing the lower pole of the old lumpectomy cavity taking about total of a 1 cm margin. This whole shaped elect elliptical portion of the old biopsy cavity then cephalad was showing E from the fibrosis taking place during healing and the new margin had fatty breast tissue. I did not run into any obvious tumor like tissue. This was removed intact in 1 piece. I placed this on a blue towel then marked it with 2 silk sutures on the new inferior margin 1 long suture laterally and superficially and 1 short suture this center of the superficial margin of the excision. This would be anterior. This was passed off the field and sent fresh for pathologic evaluation. Following this hemostasis was checked and appeared to be f
[2021-08-18 13:24] LABS: Glucose Point of Care 195 mg/dl (65-105)
--- NOTE | 2021-08-18 13:46 | SUR.PHASEI ---
Simple mask removed at 1345.
[2021-08-18] MEDS: fentaNYL CITRATE INJ (*CRX) 100 MCG/2 ML VIAL 25 MCG IV PUSH (13:58)
== END 2021-08-18 15:22 | disposition home or self-care (01) ==
PROVIDERS: PCP Internal Medicine; Visit Provider Surgery
PROC: (CPT 19301; principal; 2021-08-18 12:00)
DX: D05.11 Intraductal carcinoma in situ of right breast (principal); I10 Essential (primary) hypertension; E11.9 Type 2 diabetes mellitus without complications; F32.9 Major depressive disorder, single episode, unspecified; Z79.84 Long term (current) use of oral hypoglycemic drugs; E66.01 Morbid (severe) obesity due to excess calories; Z68.41 Body mass index [BMI] 40.0-44.9, adult
CPT/HCPCS: 19301; 36415; 80048; 82948; 88305; A9270; J0690; J1100; J1885; J2405; J2704; J3010; J7120

== ENCOUNTER 2022-01-15 12:29 | Outpatient (CLI) | payer MEDICARE, SELFPAY ==
--- NOTE | ~2022-01-15 | MMUS_ITS ---
EXAMINATION: MM diagnostic lizzie RT w lainey, US breast RT complete HISTORY: Status post partial mastectomy and radiotherapy for DCIS, June 2021 TECHNIQUE: ML, MLO and CC 3-D tomosynthesis images of the right breast were performed and synthetic 2 -D images were generated. CAD analysis was submitted and interpreted. High resolution complete right breast ultrasound including all 4 quadrants and subareolar area was performed. COMPARISON: 05/21/2021 diagnostic right mammogram and limited right breast ultrasound BREAST PARENCHYMAL COMPOSITION: The breasts are heterogeneously dense, which may obscure small masses . FINDINGS: MAMMOGRAPHIC FINDINGS: There is accentuation of fibroglandular stroma and skin thickening of the right breast, which may be secondary to radiotherapy an postsurgical change. No suspicious focal mass lesion is evident. There a re scattered benign calcifications. No malignant calcifications are evident. ULTRASOUND: A prominent seroma is noted at 11:00 8 cm from the nipple in the area of the surgical scar calculus o r other measuring at least 7 x 14 cm. No suspicious mass or shadowing is noted. IMPRESSION: 1. Probable benign postradiation and surgical skin thickening and surrounding 2. 6 month diagnostic right mammogram and right breast ultrasound follow-up are recommended BI-RADS category 3, probably benign findings. Reviewed, dictated and finalized at location A. IMPRESSION: 1. Probable benign postradiation and surgical skin thickening and surrounding 2. 6 month diagnostic right mammogram and right breast ultrasound follow-up are recommended BI-RADS category 3, probably benign findings.
[2022-01-15 14:10] LABS: Basophils Absolute Auto 0.1 K/mm3 (0.0-0.1); Basophils Percent Auto 1.2 % (0.2-1.2); Eosinophils Absolute Auto 0.3 K/mm3 (0-0.3); Eosinophils Percent Auto 2.9 % (0-4.4); Hematocrit 47.3 % (37.0-47.0); Hemoglobin 15.7 g/dL (12.0-15.0); Immature Granulocyte Absolute 0.02 K/mm3 (0.00-0.031); Immature Granulocyte Percent A 0.2 % (0-0.5); Lymphocytes Percent Auto 16.4 % (18.3-44.2); Mean Corpuscular HGB Conc 33.2 g/dl (32-36); Mean Corpuscular Hemoglobin 30.8 pg (26-34); Mean Corpuscular Volume 92.9 fl (80-100); Mean Platelet Volume 9.4 fl (7.4-10.4); Monocytes Absolute Auto 0.6 K/mm3 (0.1-0.6); Monocytes Percent Auto 7.5 % (2.6-8.5); Neutrophils Absolute Auto 6.2 K/mm3 (1.3-6.7); Neutrophils Percent Auto 71.8 % (45.5-73.1); Platelet Count Result 362 k/mm3 (150-375); Red Blood Count 5.09 M/mm3 (4.2-5.4); Red Cell Distribution Width 12.2 % (11.5-14.5); White Blood Count 8.6 K/mm3 (4.5-10.0)
[2022-01-15 16:22] LABS: Alanine Aminotransferase 16 U/L (6-35); Albumin Level 4.2 g/dL (3.5-5.1); Alkaline Phosphatase 85 U/L (38-126); Anion Gap 14 mmol/L (8-16); Aspartate Amino Transferase 18 U/L (14-36); Bilirubin,Total 1.4 mg/dL (0.2-1.3); Blood Urea Nitrogen 18 mg/dL (7-17); Calcium 8.6 mg/dL (8.4-10.2); Carbon Dioxide 29 mmol/L (22-30); Chloride 97 mmol/L (98-107); Estimated Glomerular Filt Rate 50; Glucose 206 mg/dL (65-110); Sodium 140 mmol/L (137-145)
== END 2022-01-15 12:30 | disposition home or self-care (01) ==
PROVIDERS: PCP Internal Medicine; Visit Provider Internal Medicine Hematology & Oncology
DX: D05.11 Intraductal carcinoma in situ of right breast (principal)
CPT/HCPCS: 36415; 76641; 77061; 77065; 80053; 85025; G0279

== ENCOUNTER 2022-02-06 08:13 | Outpatient (CLI) | payer MEDICARE, SELFPAY ==
--- NOTE | ~2022-02-06 | MR_ITS ---
EXAMINATION: MR knee LT wo con DATE: 02/06/2022 09:18 INDICATION: Right knee pain TECHNIQUE: Magnetic resonance imaging (MRI) of the right knee was performed without intravenous contr ast. Sequences included axial PD-weighted FS FSE, coronal PD-weighted FSE and PD-weighted FS FSE, sag ittal PD-weighted FSE, and sagittal T2-weighted FS FSE. COMPARISON: None. FINDINGS: Medial compartment: Complex tear of the posterior horn, medial meniscus, with extrusion. Full-thickness cartilage loss. S evere osteophytosis. Lateral compartment: Small apical tear at the meniscal body. Degenerative signal change. Severe diffuse cartilage thinning . Severe osteophytosis. Patellofemoral compartment: Near full-thickness cartilage loss. Moderate osteophytosis. Retinacula intact. Ligaments and tendons: ACL not visualized. MCL, PCL, and LCL are intact. Flexor and extensor tendons are intact. Fluid: Moderate volume Carr's cyst. Small knee joint effusion. Osseous/other: No suspicious focal or infiltrative marrow signal. IMPRESSION: 1. Severe tricompartmental osteophytosis. 2. Complex degenerative tear of the posterior horn, medial meniscus. 3. Chronic appearing high-grade ACL tear. 4. Carr's cyst. Reviewed, dictated and finalized at location K.
== END 2022-02-06 08:14 | disposition home or self-care (01) ==
PROVIDERS: PCP Internal Medicine; Visit Provider Internal Medicine
DX: M25.561 Pain in right knee (principal); M17.12 Unilateral primary osteoarthritis, left knee; S83.231A Complex tear of medial meniscus, current injury, right knee, initial encounter; S83.512A Sprain of anterior cruciate ligament of left knee, initial encounter; M71.21 Synovial cyst of popliteal space [Baker], right knee
CPT/HCPCS: 73721

== ENCOUNTER 2022-03-04 14:24 | Outpatient (CLI) | payer MEDICARE, SELFPAY ==
--- NOTE | ~2022-03-04 | MR_ITS ---
EXAMINATION: MR lumbar spine wo con DATE: 03/04/2022 15:07 INDICATION: Central stenosis of spinal canal. Chronic low back pain. Bilateral leg weakness. TECHNIQUE: Magnetic resonance imaging (MRI) of the lumbar spine was performed without intravenous con trast. Sequences included sagittal T2-weighted FSE, sagittal T2-weighted FS FSE, sagittal T1-weighted FSE, and axial T2-weighted FSE. COMPARISON: Lumbar spine MRI 01/28/2020 FINDINGS: There is 4 degrees dextrocurvature of thoracolumbar spine. Vertebral body heights are vivien l. There is mildly decreased disc height at L4-L5 and moderately decreased disc height at L5-S1. Epid ural lipomatosis is noted. The distal spinal cord signal intensity is normal. The conus medullaris is at L1. The following disc levels are specifically discussed: L1-L2: The disc does not extend beyond the endplate margin. There is mild bilateral facet joint osteo arthritis. There is no neural foraminal stenosis. There is no central canal stenosis. L2-L3: The disc is bulging and has an annular fissure. There is mild bilateral facet joint osteoarthr itis. There is mild bilateral neural foraminal stenosis. There is mild central canal stenosis. L3-L4: The disc is bulging and has an annular fissure. There is severe bilateral facet joint osteoart hritis. There is mild bilateral neural foraminal stenosis. There is mild central canal stenosis. L4-L5: The disc is bulging and has an annular fissure. There is severe bilateral facet joint osteoart hritis. There is mild right and moderate left neural foraminal stenosis. There is mild central canal stenosis. L5-S1: The disc is bulging and has an annular fissure. There is severe right and moderate left facet joint osteoarthritis. There is moderate right and mild left neural foraminal stenosis. There is mild central canal stenosis. IMPRESSION: 1. Moderate lumbar spondylosis, stable from 01/28/2020. Reviewed, dictated and finalized at location A.
== END 2022-03-04 14:25 | disposition home or self-care (01) ==
PROVIDERS: PCP Internal Medicine
DX: M47.817 Spondylosis without myelopathy or radiculopathy, lumbosacral region (principal); M48.07 Spinal stenosis, lumbosacral region
CPT/HCPCS: 72148

== ENCOUNTER 2022-04-07 13:04 | Outpatient (CLI) | payer MEDICARE, SELFPAY ==
[2022-04-07 14:32] LABS: Anion Gap 14 mmol/L (8-16); Blood Urea Nitrogen 11 mg/dL (7-17); Calcium 8.6 mg/dL (8.4-10.2); Carbon Dioxide 27 mmol/L (22-30); Chloride 98 mmol/L (98-107); Estimated Glomerular Filt Rate > 60; Glucose 181 mg/dL (65-110); Potassium 4.2 mmol/L (3.4-5.0); Sodium 139 mmol/L (137-145)
== END 2022-04-07 13:05 | disposition home or self-care (01) ==
LOC: ANHLAB 13:07
PROVIDERS: PCP Internal Medicine; Visit Provider Internal Medicine
DX: R79.89 Other specified abnormal findings of blood chemistry (principal)
CPT/HCPCS: 36415; 80048

== ENCOUNTER 2022-04-28 12:30 | Outpatient (RCR) | payer MEDICARE, SELFPAY ==
--- NOTE | 2022-04-01 10:08 | PTOPEVAL1 ---
Evaluation Information Assessment Status Evaluation Diagnosis L TKR Onset 03/19/22 Subjective Information Pt reports is able to tighten her muscle No molly, sutures inside and glute outside Stayed overnight only, increased pain day after returning, but is doing much better Is able to go to restroom independently Has been using cane on and off Reported Pain Level Pain Score 5: Self Report Assessment PT Clinical Summary Pt presents s/p L TKR on 03/19/22. Pt reports is already weaning from pain medication, weaning from AD, and performing hospital provided HEP. Pt demonstrates gait abnormalities of significantly reduced hao, lateral sway, decreased stance time LLE, need for standing rest breaks at times and use of hand railing vs RW for amb in clinic to and from treatment room. Also shows swelling, decreased AROM/PROM w/ pain and difficulty through measurements, and difficutly with bed/mat mobility d/t pain. Pt demos very strong voluntary quad contraction. Today we discussed pt decreasing her intensity and speed of self-progression with AD and medication, increasing cold pack to 3x daily, performing HEP as directed and no more, elevating LLE above heart, and safety with mobility. We went through HEP and pt was provided handout, verbalized understanding of instruction, and ended session with E-stim and cryo to reduce inflammation and pain. Pt will do well with therapy pending control of pain and inflammation. Plan of Care Interventions Aquatic Therapy,Electrical Stimulation,Gait Training,Hot Pack/Cold Pack,Manual Therapy,Neuro Re-education,Patient/Caregiver Educati,Therapeutic Activities,Therapeutic Exercise,Self-Care/Home Management,Other Other Interventions Taping if able, aquatic after 6 weeks post-op if necessary PT Services Indicated Yes Treatment Frequency and 2-3x weekly x 4 weeka, reassess need for further Duration therapy These treatments will address the objective and functional deficits as defined above. The patient will be advanced safely and appropriately in order for the patient to progress towards his/her prior level of function. Additional exercises will be introduced and as well as a comprehensive home exercise program upon discharge, if needed, ?to ensure carryover of functional gains achieved in the clinic. This treatment plan has been reviewed and agreement upon by the patient.
--- NOTE | 2022-04-28 16:38 | PTOPPROG ---
Assessment and note entered by Nell Ross, PT Evaluation Information Assessment Status Re-evaluation Diagnosis L TKR Onset 03/19/22 Subjective Information Pt reports her knee is doing well, pain is reduced , swelling is reduced. Her back is her greatest issue currently with severe pain Assessment PT Clinical Summary Pt presents for progress note testing of Left knee s/p TKR ~6 weeks ago. Demo's improved AROM and PROM left knee, visually improved edema reduction, no heat or redness to left knee. Strength also improved but cont to have pain with resisted quad testing to lateral knee at hypersensitve point. Gait significantly effected by back pain at this time. Pt has an appointment with a neurosurgeon this week and would like to place knee therapy on hold until she sees MD about her back. Discussed with pt possibility of aquatic therapy for both knee and back simultaneously should neuro feel therapy would be beneficial for her at this juncture. Pt also educated to continue her HEP at this time to maintain her improve AROM (0-110 AROM ) and strength as well as desensitization of hypersensitivity. Will reassess at later date to continue knee therapy as able. Plan of Care Interventions Aquatic Therapy,Electrical Stimulation,Gait Training,Hot Pack/Cold Pack,Manual Therapy,Neuro Re-education,Therapeutic Activities,Therapeutic Exercise PT Services Indicated Yes Treatment Frequency and 2x weekly x 4 weeks Duration These treatments will address the objective and functional deficits as defined above. The patient will be advanced safely and appropriately in order for the patient to progress towards his/her prior level of function. Additional exercises will be introduced and as well as a comprehensive home exercise program upon discharge, if needed, ?to ensure carryover of functional gains achieved in the clinic. This treatment plan has been reviewed and agreement upon by the patient.
--- NOTE | 2022-05-27 13:11 | PCPTNOTE ---
PHYSICAL THERAPY DISCHARGE 05-27-22 Attending Provider: LALO Coley Patient:Jazmin Marques Date of :1955 Jazmin called today and wants to cancel her therapy for her knee; she states that her knee is doing well and her back is really bothering her now. Therefore, she will be discharged at this time. Her last session here was for the reevaluation on 04/28/2022; refer to that reports for her status at the last session. She has received a total of 9 PT sessions, from April 01 to April 28, s/p L TKR. Thank you for referring this patient to [facility].
== END 2022-05-27 15:15 | disposition home or self-care (01) ==
LOC: ANHPT 12:30
PROVIDERS: PCP Internal Medicine
DX: M17.12 Unilateral primary osteoarthritis, left knee (principal)
CPT/HCPCS: 97014; 97110; 97140; 97162; 97530; G0283

== ENCOUNTER 2022-05-06 14:27 | Outpatient (CLI) | payer MEDICARE, SELFPAY ==
[2022-05-06 14:40] LABS: Basophils Absolute Auto 0.1 K/mm3 (0.0-0.1); Basophils Percent Auto 1.2 % (0.2-1.2); Eosinophils Absolute Auto 0.4 K/mm3 (0-0.3); Eosinophils Percent Auto 4.5 % (0-4.4); Hematocrit 45.2 % (37.0-47.0); Hemoglobin 15.1 g/dL (12.0-15.0); Immature Granulocyte Absolute 0.03 K/mm3 (0.00-0.031); Immature Granulocyte Percent A 0.3 % (0-0.5); Lymphocytes Absolute Auto 1.46 K/mm3 (0.9-3.2); Lymphocytes Percent Auto 16.1 % (18.3-44.2); Mean Corpuscular HGB Conc 33.4 g/dl (32-36); Mean Corpuscular Hemoglobin 30.5 pg (26-34); Mean Corpuscular Volume 91.3 fl (80-100); Mean Platelet Volume 8.9 fl (7.4-10.4); Monocytes Absolute Auto 0.6 K/mm3 (0.1-0.6); Monocytes Percent Auto 6.5 % (2.6-8.5); Neutrophils Absolute Auto 6.5 K/mm3 (1.3-6.7); Neutrophils Percent Auto 71.4 % (45.5-73.1); Platelet Count Result 433 k/mm3 (150-375); Red Blood Count 4.95 M/mm3 (4.2-5.4); Red Cell Distribution Width 12.3 % (11.5-14.5); White Blood Count 9.1 K/mm3 (4.5-10.0)
[2022-05-06 14:44] LABS: Blood Urea Nitrogen 16 mg/dL (8-26); Carbon Dioxide 29 mmol/L (22-30); Chloride 96 mmol/L (98-109); Estimated Glomerular Filt Rate 50; Glucose 177 mg/dL (70-105); Ionized Calcium (POC) 1.11 mmol/L (1.11-1.31); Potassium 4.1 mmol/L (3.5-4.9); Sodium 141 mmol/L (138-146)
[2022-05-06 16:08] LABS: Alanine Aminotransferase 15 U/L (6-35); Albumin Level 4.4 g/dL (3.5-5.1); Alkaline Phosphatase 78 U/L (38-126); Anion Gap 15 mmol/L (8-16); Aspartate Amino Transferase 22 U/L (14-36); Bilirubin,Total 1.2 mg/dL (0.2-1.3); Blood Urea Nitrogen 17 mg/dL (7-17); Calcium 8.9 mg/dL (8.4-10.2); Carbon Dioxide 27 mmol/L (22-30); Chloride 96 mmol/L (98-107); Estimated Glomerular Filt Rate 55; Glucose 176 mg/dL (65-110); Sodium 138 mmol/L (137-145)
== END 2022-05-06 14:28 | disposition home or self-care (01) ==
LOC: ANHLAB 14:29
PROVIDERS: PCP Internal Medicine; Visit Provider Internal Medicine Hematology & Oncology
DX: D05.11 Intraductal carcinoma in situ of right breast (principal)
CPT/HCPCS: 36415; 80047; 80053; 85025

== ENCOUNTER 2022-07-27 12:11 | Outpatient (CLI) | payer MEDICARE, SELFPAY ==
--- NOTE | ~2022-07-27 | DEXA_ITS ---
Bone Density Report Name: HUBERT FUENTES Age: 66 Sex: Female Ethnicity: White Date of : 1955 Indication: postmenopausal; screening for osteoporosis; cancer; hysterectomy; Referring Provider: JOSE AGRAWAL Study: Bone densitometry was performed. Exam Date: July 27, 2022 Accession number: [id number] Bone Density: Region BMD T-score Z-score Classification AP Spine(L1-L4) 1.426 3.4 5.3 Normal Femoral Neck (Left) 1.047 1.8 3.4 Normal Total Hip (Left) 1.224 2.3 3.6 Normal Femoral Neck (Right) 1.504 5.9 7.5 Normal Total Hip (Right) 1.337 3.2 4.6 Normal Total Hip Mean 1.281 2.8 4.1 Normal World Health Organization criteria for BMD impression classify patients as: Normal (T-score at or above -1.0), Osteopenia (T-score between -1.0 and -2.5), or Osteoporosis (T-score at or below -2.5). 10-year Fracture Risk: FRAX not reported because: All T-scores for Spine Total, Hip Total, Femoral Neck at or above -1.0 Clinical Information Provided by Patient: Has used the following medications: Vitamin D Has the following medical conditions: Cancer, Hysterectomy Patient maximum height was 66 Menopause Age: 45 No regular weight bearing exercise Onset of menses at age 12 Number of children 0 Impression: The patient has normal bone mass. Discussion: LOW RISK OF FRACTURE; BONE DENSITY IS WELL ABOVE THE MINIMUM DESIRABLE LEVEL AND ABOVE AVERAGE FOR AGE AND SEX AT ALL SKELETAL SITES TESTED. This person's bone density is above expected limits for age and sex. This is rarely clinically significant, but should be pursued if there are significant musculoskeletal complaints. The patient should follow a healthful lifestyle (good nutrition with adequate calcium and vitamin D, and appropriate weight-bearing exercise). Follow-Up: Consider repeating this study in 5 years or sooner if there is some new clinical indication. Reported by: [facility] on 07/27/2022 12:51:00 PM. Reviewed, dictated and finalized at location AGirish BENÍTEZ
--- NOTE | ~2022-07-27 | MM_ITS ---
EXAMINATION: MM diagnostic lizzie BI w lainey HISTORY: History of right breast cancer TECHNIQUE: Craniocaudal, mediolateral, and mediolateral oblique 3-D tomosynthesis images of the breas ts were performed and synthetic 2-D images were generated. CAD analysis was submitted and interpreted . COMPARISON: 01/15/2022, 05/21/2021, 04/08/2021, 02/22/2013 BREAST PARENCHYMAL COMPOSITION: There are scattered areas of fibroglandular density. FINDINGS: Again noted are focal asymmetry in the anterior third of the right breast as well as stable skin thickening, consistent with prior lumpectomy and radiation. There has been no suspicious interv al change. No suspicious mass, calcification, or architectural distortion are identified. IMPRESSION: 1. Stable changes in the right breast related to treatment for right breast cancer. No mammographic e vidence of malignancy. 2. Recommend routine screening mammography in one year. BI-RADS Category 2: Benign finding(s). Reviewed, dictated and finalized at location A. ETISING EXTRUDER OPERATOR IMPRESSION: 1. Stable changes in the right breast related to treatment for right breast can cer. No mammographic evidence of malignancy. 2. Recommend routine screening mammography in one year. BI-RADS Category 2: Benign finding(s).
== END 2022-07-27 12:12 | disposition home or self-care (01) ==
PROVIDERS: PCP Internal Medicine; Visit Provider Internal Medicine Hematology & Oncology
DX: M85.89 Other specified disorders of bone density and structure, multiple sites (principal); Z85.3 Personal history of malignant neoplasm of breast
CPT/HCPCS: 77062; 77066; 77080; G0279

== ENCOUNTER 2022-07-27 13:17 | Outpatient (CLI) | payer MEDICARE, SELFPAY ==
[2022-07-27 13:29] LABS: Basophils Absolute Auto 0.1 K/mm3 (0.0-0.1); Basophils Percent Auto 0.7 % (0.2-1.2); Eosinophils Absolute Auto 0.2 K/mm3 (0-0.3); Eosinophils Percent Auto 2.6 % (0-4.4); Hematocrit 46.5 % (37.0-47.0); Hemoglobin 15.8 g/dL (12.0-15.0); Immature Granulocyte Absolute 0.07 K/mm3 (0.00-0.031); Immature Granulocyte Percent A 0.8 % (0-0.5); Lymphocytes Absolute Auto 1.42 K/mm3 (0.9-3.2); Lymphocytes Percent Auto 16.5 % (18.3-44.2); Mean Corpuscular Hemoglobin 30.7 pg (26-34); Mean Corpuscular Volume 90.5 fl (80-100); Mean Platelet Volume 9.1 fl (7.4-10.4); Monocytes Absolute Auto 0.6 K/mm3 (0.1-0.6); Monocytes Percent Auto 6.6 % (2.6-8.5); Neutrophils Absolute Auto 6.3 K/mm3 (1.3-6.7); Neutrophils Percent Auto 72.8 % (45.5-73.1); Platelet Count Result 382 k/mm3 (150-375); Red Blood Count 5.14 M/mm3 (4.2-5.4); Red Cell Distribution Width 13.2 % (11.5-14.5); White Blood Count 8.6 K/mm3 (4.5-10.0)
[2022-07-27 20:45] LABS: Alanine Aminotransferase 16 U/L (6-35); Albumin Level 4.2 g/dL (3.5-5.1); Alkaline Phosphatase 74 U/L (38-126); Anion Gap 10 mmol/L (8-16); Aspartate Amino Transferase 22 U/L (14-36); Blood Urea Nitrogen 13 mg/dL (7-17); Calcium 8.1 mg/dL (8.4-10.2); Carbon Dioxide 30 mmol/L (22-30); Chloride 97 mmol/L (98-107); Estimated Glomerular Filt Rate 55; Glucose 151 mg/dL (65-110); Potassium 3.9 mmol/L (3.4-5.0); Sodium 137 mmol/L (137-145)
== END 2022-07-27 13:18 | disposition home or self-care (01) ==
PROVIDERS: PCP Internal Medicine; Visit Provider Internal Medicine Hematology & Oncology
DX: D05.11 Intraductal carcinoma in situ of right breast (principal)
CPT/HCPCS: 36415; 77062; 77066; 77080; 80053; 85025; G0279

== ENCOUNTER 2022-12-01 12:56 | Outpatient (CLI) | payer MEDICARE, SELFPAY ==
[2022-12-01 13:06] LABS: Basophils Absolute Auto 0.1 K/mm3 (0.0-0.1); Basophils Percent Auto 1.1 % (0.2-1.2); Eosinophils Absolute Auto 0.3 K/mm3 (0-0.3); Eosinophils Percent Auto 3.6 % (0-4.4); Hematocrit 47.1 % (37.0-47.0); Hemoglobin 16.1 g/dL (12.0-15.0); Immature Granulocyte Absolute 0.04 K/mm3 (0.00-0.031); Immature Granulocyte Percent A 0.4 % (0-0.5); Lymphocytes Absolute Auto 1.48 K/mm3 (0.9-3.2); Lymphocytes Percent Auto 16.5 % (18.3-44.2); Mean Corpuscular HGB Conc 34.2 g/dl (32-36); Mean Corpuscular Volume 93.6 fl (80-100); Mean Platelet Volume 9.1 fl (7.4-10.4); Monocytes Absolute Auto 0.5 K/mm3 (0.1-0.6); Monocytes Percent Auto 5.3 % (2.6-8.5); Neutrophils Absolute Auto 6.6 K/mm3 (1.3-6.7); Neutrophils Percent Auto 73.1 % (45.5-73.1); Platelet Count Result 412 k/mm3 (150-375); Red Blood Count 5.03 M/mm3 (4.2-5.4); Red Cell Distribution Width 12.2 % (11.5-14.5)
[2022-12-01 13:11] LABS: Blood Urea Nitrogen 12 mg/dL (8-26); Carbon Dioxide 30 mmol/L (22-30); Chloride 96 mmol/L (98-109); Estimated Glomerular Filt Rate 50; Glucose 159 mg/dL (70-105); Ionized Calcium (POC) 1.05 mmol/L (1.11-1.31); Sodium 138 mmol/L (138-146)
[2022-12-01 16:42] LABS: Alanine Aminotransferase 16 U/L (6-35); Albumin Level 4.1 g/dL (3.5-5.1); Alkaline Phosphatase 84 U/L (38-126); Anion Gap 11 mmol/L (8-16); Aspartate Amino Transferase 23 U/L (14-36); Bilirubin,Total 1.4 mg/dL (0.2-1.3); Blood Urea Nitrogen 13 mg/dL (7-17); Calcium 8.7 mg/dL (8.4-10.2); Carbon Dioxide 30 mmol/L (22-30); Chloride 96 mmol/L (98-107); Estimated Glomerular Filt Rate 55; Glucose 157 mg/dL (65-110); Potassium 4.2 mmol/L (3.4-5.0); Sodium 137 mmol/L (137-145)
== END 2022-12-01 12:57 | disposition home or self-care (01) ==
LOC: ANHLAB 12:57
PROVIDERS: PCP Internal Medicine; Visit Provider Internal Medicine Hematology & Oncology
DX: D05.11 Intraductal carcinoma in situ of right breast (principal)
CPT/HCPCS: 36415; 80047; 80053; 85025

== ENCOUNTER 2023-04-08 11:41 | Outpatient (CLI) | payer MEDICARE, SELFPAY ==
[2023-04-08 11:54] LABS: Basophils Absolute Auto 0.1 K/mm3 (0.0-0.1); Basophils Percent Auto 1.2 % (0.2-1.2); Eosinophils Absolute Auto 0.3 K/mm3 (0-0.3); Hematocrit 45.1 % (37.0-47.0); Hemoglobin 15.2 g/dL (12.0-15.0); Immature Granulocyte Absolute 0.04 K/mm3 (0.00-0.031); Immature Granulocyte Percent A 0.4 % (0-0.5); Lymphocytes Absolute Auto 1.77 K/mm3 (0.9-3.2); Lymphocytes Percent Auto 18.6 % (18.3-44.2); Mean Corpuscular HGB Conc 33.7 g/dl (32-36); Monocytes Absolute Auto 0.6 K/mm3 (0.1-0.6); Monocytes Percent Auto 6.5 % (2.6-8.5); Neutrophils Absolute Auto 6.7 K/mm3 (1.3-6.7); Neutrophils Percent Auto 70.3 % (45.5-73.1); Platelet Count Result 427 k/mm3 (150-375); Red Cell Distribution Width 13.1 % (11.5-14.5); White Blood Count 9.5 K/mm3 (4.5-10.0)
[2023-04-08 12:01] LABS: Blood Urea Nitrogen 11 mg/dL (8-26); Carbon Dioxide 24 mmol/L (22-30); Chloride 95 mmol/L (98-109); Estimated Glomerular Filt Rate 41; Glucose 179 mg/dL (70-105); Ionized Calcium (POC) 0.94 mmol/L (1.11-1.31); Potassium 3.6 mmol/L (3.5-4.9); Sodium 138 mmol/L (138-146)
[2023-04-08 16:42] LABS: Alanine Aminotransferase 16 U/L (6-35); Albumin Level 4.4 g/dL (3.5-5.1); Alkaline Phosphatase 87 U/L (38-126); Anion Gap 16 mmol/L (8-16); Aspartate Amino Transferase 25 U/L (14-36); Bilirubin,Total 1.7 mg/dL (0.2-1.3); Blood Urea Nitrogen 12 mg/dL (7-17); Calcium 8.7 mg/dL (8.4-10.2); Carbon Dioxide 25 mmol/L (22-30); Chloride 94 mmol/L (98-107); Estimated Glomerular Filt Rate 50; Glucose 175 mg/dL (65-110); Potassium 3.7 mmol/L (3.4-5.0); Sodium 135 mmol/L (137-145)
[2023-04-17 12:54] LABS: Block/Specimen ID Not Given; CALR Exon 9 Mutation Not Detected (Not Detected); CSF3R Exon 14/17 Mutation Not Detected (Not Detected); JAK2 Exon 12 Mutation Not Detected (Not Detected); JAK2 V617F Mutation Not Detected (Not Detected); MPL Exon 10 Mutation Not Detected (Not Detected); Specimen Source Blood
== END 2023-04-08 11:42 | disposition home or self-care (01) ==
LOC: ANHLAB 11:43
PROVIDERS: PCP Internal Medicine; Visit Provider Internal Medicine Hematology & Oncology
DX: D45 Polycythemia vera (principal); D05.11 Intraductal carcinoma in situ of right breast
CPT/HCPCS: 36415; 80047; 80053; 81219; 81270; 81279; 81339; 81479; 85025

== ENCOUNTER 2023-08-01 09:18 | Outpatient (CLI) | payer MEDICARE, SELFPAY ==
--- NOTE | ~2023-08-01 | MM_ITS ---
EXAMINATION: MM screening lizzie BI w lainey HISTORY: Screening mammogram TECHNIQUE: Craniocaudal and mediolateral oblique 3-D tomosynthesis images were obtained and synthetic 2-D images were generated. CAD analysis was submitted and interpreted. COMPARISON: 07/27/2022, 01/15/2022, 05/21/2021, 04/08/2021 BREAST PARENCHYMAL COMPOSITION: There are scattered areas of fibroglandular density. FINDINGS: There are stable lumpectomy changes in the upper outer quadrant of the right breast. Chroni c right breast skin thickening consistent with radiation change. No suspicious mass, calcification, o r architectural distortion are identified in either breast to suggest malignancy. There has been no s uspicious interval change. IMPRESSION: 1. No mammographic evidence of malignancy. 2. Recommend routine screening mammography in one year. BI-RADS Category 2: Benign finding(s). Reviewed, dictated and finalized at location A. TECH
== END 2023-08-01 09:19 | disposition home or self-care (01) ==
LOC: ANHIMG 09:21
PROVIDERS: PCP Internal Medicine; Visit Provider Internal Medicine Hematology & Oncology
DX: Z12.31 Encounter for screening mammogram for malignant neoplasm of breast (principal)
CPT/HCPCS: 77063; 77067

== ENCOUNTER 2023-08-01 09:47 | Outpatient (CLI) | payer MEDICARE, SELFPAY ==
[2023-08-01 10:08] LABS: Basophils Absolute Auto 0.2 K/mm3 (0.0-0.1); Basophils Percent Auto 2.8 % (0.2-1.2); Eosinophils Absolute Auto 0.4 K/mm3 (0-0.3); Eosinophils Percent Auto 4.8 % (0-4.4); Hemoglobin 15.8 g/dL (12.0-15.0); Immature Granulocyte Absolute 0.03 K/mm3 (0.00-0.031); Immature Granulocyte Percent A 0.4 % (0-0.5); Lymphocytes Absolute Auto 1.63 K/mm3 (0.9-3.2); Lymphocytes Percent Auto 22.4 % (18.3-44.2); Mean Corpuscular HGB Conc 33.6 g/dl (32-36); Mean Corpuscular Hemoglobin 30.1 pg (26-34); Mean Corpuscular Volume 89.5 fl (80-100); Mean Platelet Volume 9.2 fl (7.4-10.4); Monocytes Absolute Auto 0.4 K/mm3 (0.1-0.6); Monocytes Percent Auto 5.8 % (2.6-8.5); Neutrophils Absolute Auto 4.6 K/mm3 (1.3-6.7); Neutrophils Percent Auto 63.8 % (45.5-73.1); Platelet Count Result 414 k/mm3 (150-375); Red Blood Count 5.25 M/mm3 (4.2-5.4); Red Cell Distribution Width 12.5 % (11.5-14.5); White Blood Count 7.3 K/mm3 (4.5-10.0)
[2023-08-01 17:13] LABS: Alanine Aminotransferase 14 U/L (6-35); Albumin Level 4.1 g/dL (3.5-5.1); Alkaline Phosphatase 89 U/L (38-126); Anion Gap 17 mmol/L (8-16); Aspartate Amino Transferase 23 U/L (14-36); Bilirubin,Total 1.5 mg/dL (0.2-1.3); Blood Urea Nitrogen 18 mg/dL (7-17); Calcium 8.7 mg/dL (8.4-10.2); Carbon Dioxide 26 mmol/L (22-30); Chloride 95 mmol/L (98-107); Estimated Glomerular Filt Rate 50; Glucose 201 mg/dL (65-110); Potassium 3.7 mmol/L (3.4-5.0); Sodium 138 mmol/L (137-145)
== END 2023-08-01 09:48 | disposition home or self-care (01) ==
PROVIDERS: PCP Internal Medicine; Visit Provider Internal Medicine Hematology & Oncology
DX: D45 Polycythemia vera (principal)
CPT/HCPCS: 36415; 77063; 77067; 80053; 85025

== ENCOUNTER 2023-08-30 12:15 | Outpatient (CLI) | payer MEDICARE, SELFPAY ==
--- NOTE | ~2023-08-30 | MR_ITS ---
MRI of the lumbar spine Clinical History: Spondylosis Technique: Axial T2-weighted images, and sagittal T1-weighted, T2-weighted, and T2 fat-sat images wer e acquired. COMPARISON: 03/04/2022 Findings: There is no fracture or subluxation of the lumbar spine. Vertebral bodies maintain normal h eight and alignment. No suspicious bone marrow signal abnormality seen. At L1-L2, there is no disc bulge or herniation. There is mild facet arthropathy. No central canal josue nosis or neural foraminal narrowing. At L2-L3, there is minimal disc bulge and mild facet arthropathy. No central canal stenosis or neural foraminal narrowing. At L3-L4, there is disc bulge and moderate facet arthropathy. No hector central canal stenosis. There is mild left neural foraminal narrowing. Right neural foramen preserved. At L4-L5, there is diffuse disc bulge and advanced facet arthropathy, resulting in severe spinal almita l stenosis/thecal sac compression. There is mild to moderate bilateral neural foraminal narrowing. At L5-S1, there is disc bulge and moderate to advanced facet arthropathy. No central canal stenosis. There is severe right neural foraminal narrowing. Left neural foramen preserved. Paravertebral soft tissues are unremarkable. Impression: Severe degenerative spondylosis at L4-L5, as detailed above. Moderate degenerative spondylosis at L5-S1, as detailed above. Mild degenerative change in the remainder of the lumbar spine. Reviewed, dictated and finalized at [facility]. MAKER Impression: Severe degenerative spondylosis at L4-L5, as detailed above. Moderate degenerative spondylosis at L5-S1, as detailed above. Mild degenerative change in the remainder of the lumbar spine.
== END 2023-08-30 12:16 | disposition home or self-care (01) ==
LOC: ANHIMG 12:21
PROVIDERS: PCP Internal Medicine; Visit Provider Physician Assistant
DX: F40.240 Claustrophobia (principal); M47.816 Spondylosis without myelopathy or radiculopathy, lumbar region
CPT/HCPCS: 72148

== ENCOUNTER 2023-09-16 11:40 | Outpatient (CLI) | payer MEDICARE, SELFPAY ==
--- NOTE | ~2023-09-16 | XR_ITS ---
EXAMINATION: XR lumbar spine 2-3V DATE: 09/16/2023 11:59 INDICATION: Spinal stenosis of the lumbar region TECHNIQUE: Lateral views of the lumbar spine in neutral, flexion, and extension were obtained. COMPARISON: MRI, 08/30/2023 FINDINGS: There are 2 mm of anterolisthesis of L4 on L5. No hypermobility is present with flexion or extension. There is severe loss of intervertebral disc space height at L5-S1. There is mild loss of i ntervertebral disc space height at L4-5. There is severe facet joint osteoarthritis of the lower lumb ar spine. The vertebral body heights are maintained. There is no fracture. IMPRESSION: 1. Severe lower lumbar spondylosis without acute findings or significant interval change. Reviewed, dictated and finalized at location B. AND HOSTESS IMPRESSION: 1. Severe lower lumbar spondylosis without acute findings or significant interv al change.
== END 2023-09-16 11:41 | disposition home or self-care (01) ==
PROVIDERS: PCP Internal Medicine; Visit Provider Physician Assistant
DX: M43.06 Spondylolysis, lumbar region (principal); M48.062 Spinal stenosis, lumbar region with neurogenic claudication
CPT/HCPCS: 72100

== ENCOUNTER 2023-10-07 10:59 | Outpatient (CLI) | payer MEDICARE, SELFPAY ==
[2023-10-07 11:14] LABS: Basophils Absolute Auto 0.1 K/mm3 (0.0-0.1); Basophils Percent Auto 1.3 % (0.2-1.2); Eosinophils Absolute Auto 0.4 K/mm3 (0-0.3); Eosinophils Percent Auto 4.2 % (0-4.4); Hematocrit 45.2 % (37.0-47.0); Hemoglobin 15.3 g/dL (12.0-15.0); Immature Granulocyte Absolute 0.03 K/mm3 (0.00-0.031); Immature Granulocyte Percent A 0.4 % (0-0.5); Lymphocytes Absolute Auto 1.53 K/mm3 (0.9-3.2); Mean Corpuscular HGB Conc 33.8 g/dl (32-36); Mean Corpuscular Hemoglobin 30.5 pg (26-34); Mean Platelet Volume 8.8 fl (7.4-10.4); Monocytes Absolute Auto 0.6 K/mm3 (0.1-0.6); Neutrophils Absolute Auto 5.9 K/mm3 (1.3-6.7); Neutrophils Percent Auto 69.1 % (45.5-73.1); Platelet Count Result 433 k/mm3 (150-375); Red Blood Count 5.02 M/mm3 (4.2-5.4); Red Cell Distribution Width 12.9 % (11.5-14.5); White Blood Count 8.5 K/mm3 (4.5-10.0)
[2023-10-07 11:20] LABS: Blood Urea Nitrogen 15 mg/dL (8-26); Carbon Dioxide 34 mmol/L (22-30); Chloride 94 mmol/L (98-109); Estimated Glomerular Filt Rate 41; Glucose 147 mg/dL (70-105); Ionized Calcium (POC) 1.09 mmol/L (1.11-1.31); Potassium 3.5 mmol/L (3.5-4.9); Sodium 139 mmol/L (138-146)
[2023-10-07 13:39] LABS: Alanine Aminotransferase 12 U/L (6-35); Albumin Level 3.8 g/dL (3.5-5.1); Alkaline Phosphatase 98 U/L (38-126); Anion Gap 6 mmol/L (8-16); Aspartate Amino Transferase 20 U/L (14-36); Bilirubin,Total 1.3 mg/dL (0.2-1.3); Blood Urea Nitrogen 17 mg/dL (7-17); Calcium 9.1 mg/dL (8.4-10.2); Carbon Dioxide 33 mmol/L (22-30); Chloride 97 mmol/L (98-107); Estimated Glomerular Filt Rate 45; Glucose 145 mg/dL (65-110); Potassium 3.6 mmol/L (3.4-5.0); Sodium 136 mmol/L (137-145)
== END 2023-10-07 11:00 | disposition home or self-care (01) ==
LOC: ANHLAB 11:03
PROVIDERS: PCP Internal Medicine; Visit Provider Internal Medicine Hematology & Oncology
DX: D45 Polycythemia vera (principal)
CPT/HCPCS: 36415; 80047; 80053; 85025

== ENCOUNTER 2024-02-06 13:44 | Outpatient (CLI) | payer MEDICARE, SELFPAY ==
[2024-02-06 13:56] LABS: Basophils Absolute Auto 0.1 K/mm3 (0.0-0.1); Basophils Percent Auto 1.2 % (0.2-1.2); Eosinophils Absolute Auto 0.2 K/mm3 (0-0.3); Eosinophils Percent Auto 2.6 % (0-4.4); Hematocrit 48.4 % (37.0-47.0); Hemoglobin 15.9 g/dL (12.0-15.0); Immature Granulocyte Absolute 0.02 K/mm3 (0.00-0.031); Immature Granulocyte Percent A 0.2 % (0-0.5); Lymphocytes Absolute Auto 1.82 K/mm3 (0.9-3.2); Lymphocytes Percent Auto 19.8 % (18.3-44.2); Mean Corpuscular HGB Conc 32.9 g/dl (32-36); Mean Corpuscular Hemoglobin 29.9 pg (26-34); Mean Platelet Volume 8.6 fl (7.4-10.4); Monocytes Absolute Auto 0.5 K/mm3 (0.1-0.6); Monocytes Percent Auto 5.4 % (2.6-8.5); Neutrophils Absolute Auto 6.5 K/mm3 (1.3-6.7); Neutrophils Percent Auto 70.8 % (45.5-73.1); Platelet Count Result 449 k/mm3 (150-375); Red Blood Count 5.32 M/mm3 (4.2-5.4); White Blood Count 9.2 K/mm3 (4.5-10.0)
[2024-02-06 14:01] LABS: Blood Urea Nitrogen 17 mg/dL (8-26); Carbon Dioxide 26 mmol/L (22-30); Chloride 99 mmol/L (98-109); Estimated Glomerular Filt Rate 45; Glucose 121 mg/dL (70-105); Sodium 139 mmol/L (138-146)
== END 2024-02-06 13:45 | disposition home or self-care (01) ==
LOC: ANHLAB 13:45
PROVIDERS: PCP Internal Medicine; Visit Provider Internal Medicine Hematology & Oncology
DX: D05.11 Intraductal carcinoma in situ of right breast (principal)
CPT/HCPCS: 36415; 80047; 85025

== ENCOUNTER 2024-08-13 09:39 | Outpatient (CLI) | payer MEDICARE, SELFPAY ==
--- NOTE | ~2024-08-13 | MM_ITS ---
EXAMINATION: MM screening [facility] BI w lainey HISTORY: Screening TECHNIQUE: Craniocaudal and mediolateral oblique 3-D tomosynthesis images were obtained and synthetic 2-D images were generated. CAD analysis was submitted and interpreted. COMPARISON: Comparison to multiple prior studies sequentially, with oldest reviewed study dated 05/25. BREAST PARENCHYMAL COMPOSITION: Not dense: There are scattered areas of fibroglandular density. FINDINGS: There is distortion in the upper outer quadrant of the right breast, consistent with previo us lumpectomy. There is chronic thickening of the skin, possibly secondary to radiation therapy. The left breast is stable without evidence for malignancy. IMPRESSION: 1. No evidence for malignancy in either breast. 2. Recommend routine screening mammography in one year. BI-RADS Category 2: Benign finding(s). Reviewed, dictated and finalized at location A. [employer]OR SAFETY
== END 2024-08-13 09:40 | disposition home or self-care (01) ==
LOC: ANHIMG 09:44
PROVIDERS: PCP Internal Medicine; Visit Provider Internal Medicine Hematology & Oncology
DX: Z12.31 Encounter for screening mammogram for malignant neoplasm of breast (principal)
CPT/HCPCS: 77063; 77067

== ENCOUNTER 2024-08-13 10:27 | Outpatient (CLI) | payer MEDICARE, SELFPAY ==
[2024-08-13 10:52] LABS: Basophils Absolute Auto 0.1 K/mm3 (0.0-0.1); Basophils Percent Auto 1.2 % (0.2-1.2); Eosinophils Absolute Auto 0.3 K/mm3 (0-0.3); Eosinophils Percent Auto 3.1 % (0-4.4); Hematocrit 47.6 % (37.0-47.0); Immature Granulocyte Absolute 0.04 K/mm3 (0.00-0.031); Immature Granulocyte Percent A 0.4 % (0-0.5); Lymphocytes Absolute Auto 1.55 K/mm3 (0.9-3.2); Lymphocytes Percent Auto 16.9 % (18.3-44.2); Mean Corpuscular HGB Conc 33.6 g/dl (32-36); Mean Corpuscular Hemoglobin 31.9 pg (26-34); Mean Platelet Volume 8.3 fl (7.4-10.4); Monocytes Absolute Auto 0.5 K/mm3 (0.1-0.6); Monocytes Percent Auto 5.5 % (2.6-8.5); Neutrophils Absolute Auto 6.7 K/mm3 (1.3-6.7); Neutrophils Percent Auto 72.9 % (45.5-73.1); Platelet Count Result 364 k/mm3 (150-375); Red Blood Count 5.01 M/mm3 (4.2-5.4); Red Cell Distribution Width 12.6 % (11.5-14.5); White Blood Count 9.2 K/mm3 (4.5-10.0)
[2024-08-13 11:25] LABS: Alanine Aminotransferase 10 U/L (6-35); Albumin Level 3.8 g/dL (3.5-5.1); Alkaline Phosphatase 109 U/L (38-126); Anion Gap 11 mmol/L (4-12); Aspartate Amino Transferase 23 U/L (14-36); Bilirubin,Total 1.1 mg/dL (0.2-1.3); Blood Urea Nitrogen 15 mg/dL (7-17); Calcium 9.5 mg/dL (8.4-10.2); Carbon Dioxide 28 mmol/L (22-30); Chloride 98 mmol/L (98-107); Estimated Glomerular Filt Rate 46; Glucose 222 mg/dL (65-110); Potassium 4.3 mmol/L (3.4-5.0); Sodium 137 mmol/L (137-145)
== END 2024-08-13 10:28 | disposition home or self-care (01) ==
LOC: ANHLAB 10:29
PROVIDERS: PCP Internal Medicine; Visit Provider Internal Medicine Hematology & Oncology
DX: D05.11 Intraductal carcinoma in situ of right breast (principal)
CPT/HCPCS: 36415; 80053; 85025

== ENCOUNTER 2025-02-28 12:03 | Outpatient (CLI) | payer MEDICARE, SELFPAY ==
--- OUTSIDE RECORDS SUMMARY | 2025-02-28 12:11 | XMS_ITS | Encounter Summary ---
Author Organization [facility] Address [address] [place] [address] Care Team Providers Care Color Paste Mixing Supervisor Name Role Phone Marcos Andrade MD Primary Care Provider [phone] Encounter Details Date Type Department Care Team (Late st Contact Info) Description 02/26/2025 External Device Data [facility] ABSTRACTION Provider, Abstract NO ADDRESS ON FILE Social History Tobacco Use Types Packs/Day Years Used Date Smoking Tobacco: Never Smokeless Tobacco: Never Alcohol Use Standard Drinks/Week Comments Never 0 (1 standard drink = 0.6 oz pur e alcohol) Comments Unknown Sex and Gender Information Value Date Recorded Sex Assigned at Not on file 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 Gender Identity Not on file Sexual Orientation Not on file documented as of this encounter Plan of Treatment Upcoming Encounters Date Type Department Care Team (Late st Contact Info) Description 02/28/2025 1:00 PM CDT Office Visit [facility] Oncology and Hematology - [place] [address] [facility] [address] [place] [address] Horace Guaman MD [address] [facility] [address] [place] [address] documented as of this encounter Visit Diagnoses Not on filedocumented in this encounter Care Teams Color Paste Mixing Supervisor Relationship Specialty Start Date End Date Marcos Andrade MD [address] [place] [address] PCP - General Internal Medicine 07/15/21 documented as of this encounter
--- OUTSIDE RECORDS SUMMARY | 2025-02-28 12:11 | XMS_ITS | Clinical Summary ---
Author Organization [facility] Address [address] [place] [address] Care Team Providers Care Educational Administrator Name Role Phone Marcos Andrade MD Primary Care Provider [phone] Allergies Active Allergy Reactions Criticality Noted Date Comments Chlorzoxazone Hives 04/10/2021 Medications diphenhydrAMINE 25 MG capsule Take 1 capsule (25 mg total) by mouth every 6 (six) hours as needed for Itching. Active anastrozole 1 MG tablet daily. 2 Active dulaglutide (TRULICITY) 4.5 MG/0.5ML injection (PEN)Indications:Ty pe 2 diabetes mellitus with diabetic neuropathy, without long-term current use of insulin ([facility]) Inject 4.5 mg into the skin once a week. 12 pen. 3 4 Active tiZANidine (ZANAFLEX) 4 MG tabletIndications:L umbar spondylosis TAKE 1 TABLET(4 MG) BY MOUTH EVERY 6 HOURS NEEDED 60 tablet 2 5 Active atorvastatin (LIPITOR) 20 MG tabletIndications:H yperlipidemia TAKE 1 TABLET(20 MG) BY MOUTH EVERY NIGHT AT BEDTIME 90 tablet 1 5 Active DULoxetine (CYMBALTA) 60 MG capsuleIndications: Depression, unspecified depression type,Chronic bilateral low back pain without sciatica TAKE 1 CAPSULE(60 MG) BY MOUTH DAILY 90 capsule 1 5 Active Vitamin D3 125 mcg Tab Take 1 tablet (125 mcg total) by mouth daily. Active gabapentin (NEURONTIN) 300 MG capsuleIndications: Peripheral polyneuropathy Take 1 capsule (300 mg total) by mouth 3 (three) times daily. 270 capsule 5 Active furosemide (LASIX) 20 MG tabletIndications:B enign essential hypertension Take 1 tablet (20 mg total) by mouth daily. 90 tablet 3 5 Active metoprolol succinate ER (TOPROL-XL) 25 MG 24 hr tabletIndications:B enign essential hypertension Take 1 tablet (25 mg total) by mouth daily. 90 tablet 3 5 Active metFORMIN (GLUCOPHAGE) 500 MG tabletIndications:T ype 2 diabetes mellitus with diabetic neuropathy, without long-term current use of insulin ([facility]) Take 2 tablets (1,000 mg total) by mouth daily. 180 tablet 3 5 Active HYDROcodone-acetami nophen (NORCO) 5-325 MG tabletIndications:C hronic Pain Take 1 tablet by mouth every 8 (eight) hours as needed for Pain. Indications: Chronic Pain 60 tablet 5 Active Active Problems Problem Noted Date Diagnosed Date BMI 38.0-38.9,adult 09/01/2023 Osteopenia of multiple sites 12/02/2022 Morbid (severe) obesity due to excess calories 1 08/07/2021 Lumbar spondylosis 04/08/2022 Type 2 diabetes mellitus wit h diabetic neuropathy ([facility]) 02/16/2022 Ductal carcinoma in situ (DCIS) of right breast 07/16/2021 Microcalcification of right breast on mammogram 05/25/2021 Breast calcifications on mammogram 04/10/2021 Hypothyroidism 02/04/2020 Overview (02/04/2020): 01/15/20 TSH 10.100, Free T4 1.19, Free T3 3.01. Start patient on Levothyroxine 50mcg QD, recheck TSH and Free T4 in 6 weeks. Primary osteoarthritis involving multiple joints 12/05/2019 Hypokalemia 04/21/2018 Right knee pain 03/03/2017 Peripheral neuropathy 01/30/2014 Restless legs syndrome 01/30/2014 Lower back pain 11/16/2012 Benign essential hypertension 03/08/2012 Depression 03/08/2012 Vitamin D deficiency 03/08/2012 Hypercholesterolemia 01/25/2012 Resolved Problems Problem Noted Date Diagnosed Date Resolved Date Cancer ([facility]) 02/23/202206/2024 Controlled type 2 diabetes darío murguia without complication ([facility]) 01/25/2012 2 Encounters Date Type Department Care Team Description 12/10/2024 1:40 PM CDT Office Visit [facility] Medical [facility] Family & Internal Medicine [address] [address] Marcos Andrade MD Follow Up; Diabetes (1 month f/u for adding metformin. Patient decided to stop using freestyle cheryle because it wouldn't stay on her arm for full 14 days. ) 12/10/2024 Travel 12/07/2024 Patient Outreach [facility] Internal Medicine [address] [address] Marcos Andrade MD Pre-visit Gap Closure from Last 3 Months Immunizations Immunization Administration Dates Next Due Fluzone 6 Months+ Quad (0.5 mL Prefilled Syringe) 05/16/2020 Fluzone High Dose - >Age 65 (Prefilled Syringe) 05/24/2023,06/07/2022,05/01/2021 Influenza (Generic) 04/24/2019,05/08/2014 Influenza Adult (Generic) 05/24/2023,06/07/2022 PFIZER COVID-19 (VALDEZ CAP), MRNA, LNP-S, PF, 30 MCG/0.3 ML MICHAEL-SUCROSE, IM 10/29/2021 PFIZER COVID-19 (ORIGINAL FO RMULATION, PURPLE CAP) mRNA, LNP-S, PF, 30 MCG/0.3 ML DOSE 06/17/2021,09/26/2020,08/29/2020 Pneumococcal (Prevnar 20) 03/17/2023 Family History Medical History Relation Comments Hypertension Father Lung Cancer Mother Relation Status Comments Father Mother Social History Tobacco Use Types Packs/Day Years Used Date Smoking Tobacco: Never Smokeless Tobacco: Never Tobacco Cessation:Counseling Given: No Comments:Never a smoker Alcohol Use Standard Drinks/Week Comments Not Currently 0 (1 standard drink = 0.6 oz pur e alcohol) PHQ-2 Answer Date Recorded Patient Health Questionnaire-2 Score 3 10/29/2024 Comments No Sex and Gender Information Value Date Recorded Sex Assigned at Female 10/29/2024 1:41 PM CDT Legal Sex Female 9:28 PM CDT Gender Identity Not on file Sexual Orientation Not on file Occupation Industry Job Start Date Job End Date 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 Not on file Not on file Not on file Last Filed Vital Signs Vital Sign Reading Time Taken Comments Blood Pressure 136/80 12/10/2024 1:58 PM CDT Pulse 93 12/10/2024 1:58 PM CDT Temperature 36.5 C (97.7 F) 12/10/2024 1:58 PM CDT Respiratory Rate 18 12/10/2024 1:58 PM CDT Oxygen Saturation 96% 12/10/2024 1:58 PM CDT Inhaled Oxygen Concentration - - Weight 109.8 kg (242 lb) 12/10/2024 1:58 PM CDT Height 162.6 cm (5' 4) 12/10/2024 1:58 PM CDT Body Mass Index 41.54 12/10/2024 1:58 PM CDT Plan of Treatment Upcoming Encounters Date Type Department Care Team (Late st Contact Info) Description 03/14/2025 1:40 PM CDT Office Visit [facility] Family & Internal Medicine - [address] [address] Marcos Andrade MD [address] [place] [address] [id number] Health Maintenance Due Date Last Done Comments Colorectal Cancer Screening Colonoscopy (10 Years) 1955 Kidney Health Evaluation 1955 Hepatitis C 1973 DTaP, Tdap and Td Vaccines (1 - Tdap) 1974 Zoster Vaccines (1 of 2) 2005 RSV Immunization or 60+ Years (1 - Risk 60-74 years 1-dose series) 2015 Annual Medicare Wellness Visit 2020 Lipid Panel 06/17/2022 06/17/2021, 08/19/2020 COVID-19 Vaccine ( - season) 2024 10/29/2021, 06/17/2021, 09/26/2020, Additional history exists Hemoglobin A1C 04/30/2025 10/29/2024, 02/22, 12/01/2023, Additional history exists Diabetes: Retinopathy Eye Exam 09/16/2025 09/16/2023 Mammogram Screening 08/13/2026 08/13/2024, 08/01/2023, 07/27/2022, Additional history exists Dexa Scan (General) Completed 07/27/2022, 07/27/2022, 07/27/2022 Pneumococcal Vaccine: 50+ Years Completed 03/17/2023 PHQ-2 ([employer]ician [employer] [place]) Completed 10/29/2024 Meningococcal B Vaccine Aged Out No l onger eligible based on patient's age to complete this topic Meningococcal Vaccine Aged Out No peyman abelardo eligible based on patient's age to complete this topic RSV Immunizations Under 20 Months Aged Out No longer eligible based on patient's age to complete this topic Procedures Procedure Name Priority Date/Time Associated Diagnosis Comments HEMOGLOBIN, GLYCOSYLATED Routine 10/29/2024 Type 2 diabetes mellitus with diabetic neuropathy, without long-term current use of insulin ([facility]) MAMMOGRAM GENERIC (SCAN ORDER) 08/13/2024 DIABETIC RETINOPATHY EXAM (NEGATIVE)(SCAN ORDER) Routine 09/16/2023 BONE DENSITY GENERIC (SCAN ORDER) 07/27/2022 LIPID PANEL Routine 06/17/2021 12:52 PM PBX WIRE CHIEF Controlled type 2 diabetes mellitus without complication, unspecified whether local company intermodal truck driver insulin use Hypercholesterolemia Benign essential hypertension from Last 3 Months or Most Recently Relevant to Health Maintenance Results * (ABNORMAL) HEMOGLOBIN, GLYCOSYLATED (10/29/2024) HGB A1C 6.5(A) % [facility] 10/29/2024 us Marcos Andrade MD LABORATORY Final Result [facility] [address] [place] [address], * MAMMOGRAM GENERIC (SCAN ORDER) (08/13/2024) Anatomical Region Laterality Modality Other 08/13/2024 [facility] Scanned SCANNING Final Resu lt * DIABETIC RETINOPATHY EXAM (NEGATIVE) (09/16/2023) [facility] Scanned SCANNING Final Resu lt [facility] * BONE DENSITY GENERIC (07/27/2022) Anatomical Region Laterality Modality Other 07/27/2022 [facility] Scanned SCANNING Final Resu lt * (ABNORMAL) LIPID PANEL (06/17/2021 12:52 PM PBX WIRE CHIEF) CHOLESTEROL 243(H) <200 MG/DL 06/17/2021 8:49 PM PBX WIRE CHIEF [facility] TRIGLYCERIDES 224(H) <150 MG/DL 06/17/2021 8:49 PM PBX WIRE CHIEF [facility] HDL 48 >40 MG/DL 06/17/2021 8:49 PM PBX WIRE CHIEF [facility] LDL-C 150(H) <100 MG/DL 06/17/2021 8:49 PM PBX WIRE CHIEF [facility] VLDL CALCULATION 45(H) 5 - 28 MG/DL 06/17/2021 8:49 PM PBX WIRE CHIEF [facility] CHOL/HDL RATIO 5.1(H) 0.0 - 4.0 06/17/2021 8:49 PM [facility] LDL/HDL 3.1(H) 0.41 - 2.13 06/17/2021 8:49 PM PBX WIRE CHIEF [facility] NON HDL CHOLESTEROL 195(H) <140 MG/DL 06/17/2021 8:49 PM PBX WIRE CHIEF [facility] 06/17/2021 12:5 2 PM PBX WIRE CHIEF Marcos Andrade MD LABORATORY Final Result [facility] [place] [place] [address] [facility] [address], from Last 3 Months or Most Recently Relevant to Health Maintenance Insurance [facility] Care Teams Educational Administrator Relationship Specialty Start Date End Date Marcos Andrade MD [address] [place] [id number] PCP - General INTERNAL MEDICINE 07/04/18
--- OUTSIDE RECORDS SUMMARY | 2025-02-28 12:11 | XMS_ITS | Clinical Summary ---
Author Organization [facility] Address [address] [place] [place] [address] Care Team Providers Care Felt Tipping Machine Tender Name Role Phone Marcos Andrade MD Primary Care Provider [phone] Allergies Active Allergy Reactions Criticality Noted Date Comments Chlorzoxazone Hives High 04/10/2021 Reaction: HIVES Codeine Hives High 07/15/2021 Reaction: HIVES, Medications DULoxetine (CYMBALTA) 60 mg Capsule, Delayed Release(E.C.) TAKE 1 CAPSULE(60 MG) BY MOUTH DAILY 1 Active furosemide (LASIX) 40 mg tablet Take 40 mg by mouth daily. Reduced to 20mg 1 Active gabapentin (NEURONTIN) 300 mg capsule Take 1 Capsule by mouth 3 times daily. 1 Active diphenhydrAMINE (BENADRYL) 25 mg capsule Take 25 mg by mouth every 6 hours as needed. Active atorvastatin (LIPITOR) 20 mg tablet Take 20 mg by mouth. 1 Active metFORMIN (GLUCOPHAGE XR) 500 mg Extended Release 24 hour tablet TAKE 2 TABLETS(1000 MG) BY MOUTH TWICE DAILY 1 Active potassium chloride (K-TAB) 20 mEq Extended Release tablet Take 1 Tablet by mouth daily. 1 Active metoprolol succinate (TOPROL XL) 50 mg Extended Release 24 hour tablet Take 50 mg by mouth daily. 1 Active Trulicity 0.75 mg/0.5 mL injection ADMINISTER 0.75 MG UNDER THE SKIN 1 TIME A WEEK 2 Active tiZANidine (ZANAFLEX) 4 mg Tablet Take 4 mg by mouth every 6 hours as needed. 3 Active anastrozole (ARIMIDEX) 1 mg tabletIndicatio ns:Ductal carcinoma in situ (DCIS) of right breast TAKE 1 TABLET(1 MG) BY MOUTH DAILY 90 Tablet 3 Active Active Problems Problem Noted Date Diagnosed Date Ductal carcinoma in situ (DCIS) of right breast 10/15/2021 Encounters Date Type Department Care Team Description 02/26/2025 External Device Data [facility] ABSTRACTION Provider, Abstract 02/06/2025 External Device Data [facility] ABSTRACTION Provider, Abstract 02/06/2025 External Device Data [facility] ABSTRACTION Provider, Abstract 01/15/2025 External Device Data [facility] ABSTRACTION Provider, Abstract 12/13/2024 External Device Data [facility] ABSTRACTION Provider, Abstract 12/12/2024 External Device Data [facility] ABSTRACTION Provider, Abstract from Last 3 Months Family History Medical History Relation Name Comments Liver Cancer Mother Relation Name Status Comments Brother 1 Alive Brother 2 Alive Father Mother Sister Alive Social History Tobacco Use Types Packs/Day Years Used Date Smoking Tobacco: Never Smokeless Tobacco: Never Tobacco Cessation:Counseling Given: Not Answered Alcohol Use Standard Drinks/Week Comments Never 0 (1 standard drink = 0.6 oz pur e alcohol) Comments Unknown Sex and Gender Information Value Date Recorded Sex Assigned at Not on file Legal Sex Female 2:42 PM CHEFS Gender Identity Not on file Sexual Orientation Not on file Last Filed Vital Signs Vital Sign Reading Time Taken Comments Blood Pressure 111/69 08/31/2024 9:13 AM CHEFS Pulse 114 08/31/2024 9:13 AM CHEFS Temperature 35.9 C (96.6 F) 08/31/2024 9:13 AM CHEFS Respiratory Rate 18 08/31/2024 9:13 AM CHEFS Oxygen Saturation 95% 08/31/2024 9:13 AM CHEFS Inhaled Oxygen Concentration - - Weight 104.3 kg (230 lb) 08/31/2024 9:13 AM CHEFS Height 162.6 cm (5' 4) 05/06/2022 2:49 PM CDT Body Mass Index 39.48 05/06/2022 2:49 PM CDT Plan of Treatment Upcoming Encounters Date Type Department Care Team (Late st Contact Info) Description 02/28/2025 1:00 PM CDT Office Visit [facility] Oncology and Hematology - [place] [address] [facility] [address] [place] [address] Horace Guaman MD [address] [facility] [address] [place] [address] Health Maintenance Due Date Last Done Comments DIABETES ANNUAL FOOT EXAM 1973 DIABETES ANNUAL RETINAL EXAM 1973 DIABETES MICROALBUMIN ANNUAL SCREEN 1973 LDL CHOLESTEROL ANNUAL 1973 DTAP/TDAP/TD VACCINES (1 - Tdap) 1974 COLORECTAL SCREENING 2000 Colorectal Cancer Screening 2000 FIT-DNA Q 3 years 2000 FIT/FOBT Q 1 year 2000 Flex Sig/CT Colonography Q 5 years 2000 ZOSTER VACCINE (1 of 2) 2005 COVID-19 Vaccine (2023-2 5 season) 2024 10/29/2021, 06/17/2021, 09/26/2020, Additional history exists [place] Preventative Visit/Annual Wellness Visit 07/25/2024 DIABETES HBA1C Q 6 MONTHS 09/05/20242023, 12/01/2023, 07/28/2023, Additional history exists INFLUENZA VACCINE (#1) 2025 , 06/07/2022, 05/01/2021, Additional history exists BREAST CANCER SCREENING 08/13/2025 08/13/2024, 08/01 OSTEOPOROSIS SCREENING 07/27/2027 07/27/2022, 2022 RSV VACCINE (60+ or ) (1 - 1-dose 75+ series) 2030 PNEUMOCOCCAL VACCINE 50+ YEARS Completed 03/17/2023 Procedures Procedure Name Priority Date/Time Associated Diagnosis Comments MAMMO SCREENING BILAT Routine 08/13/2024 11:10 AM CHEFS from Last 3 Months or Most Recently Relevant to Health Maintenance Results * MAMMO SCREENING BILAT (08/13/2024 11:10 AM CHEFS) Anatomical Region Laterality Modality Breast Bilateral Mammography Horace Guaman MD MAMMO ORDERABLES Final Result from Last 3 Months or Most Recently Relevant to Health Maintenance Insurance [facility] [id number] Care Teams Felt Tipping Machine Tender Relationship Specialty Start Date End Date Marcos Andrade MD [address] [place] [phone] PCP - General Internal Medicine 07/15/21
--- OUTSIDE RECORDS SUMMARY | 2025-02-28 12:11 | XMS_ITS | Continuity of Care Document ---
Author Organization [facility] Address [address] [place] [address] Phone Care Team Providers Care Customer Assistance Associate Name Role Phone Chris Singh MD, MD Unavailable Unavailable Allergies, Adverse Reactions, Alerts Substance Reaction Status Criticality chlorzoxazone HivesHives Active No Information Medications Medication Instructions Dosage Effective Dates (start - stop) Status Comments Stanfield 5 mg-325 mg tablet take 1-2 tablet by oral route every 6 hours as needed for pain - Active Stanfield 5 mg-325 mg tablet take 1-2 tablet by oral route every 6 hours as needed for pain - Active Stanfield 5 mg-325 mg tablet take 1-2 tablet by oral route every 4-6 hours as needed for pain - Active Percocet 5 mg-325 mg tablet take 1-2 tablet by oral route every 4-6 hours as needed for severe pain - Active Mobic 15 mg tablet take 1 tablet by ora l route every day - Active Cymbalta 60 mg capsule,delayed release TAKE 1 CAPSULE(60 MG) BY MOUTH DAILY - Active Trulicity 0.75 mg/0.5 mL subcutaneous pen injector Inject 0.75 mg into the skin once a week. - Active Lipitor 20 mg tablet TAKE 1 TABLET(20 MG ) BY MOUTH EVERY NIGHT AT BEDTIME - Active tramadol 50 mg tablet Take 1 tablet (50 mg total) by mouth every 6 (six) hours as needed for Pain. Indications: Chronic Pain - Active Toprol XL 50 mg tablet,extended release TAKE 1 TABLET(50 MG) BY MOUTH DAILY - Active Continuous Blood Gluc Sensor (FREESTYLE TG SENSOR SYSTEM) Misc 1 Device by Does not apply route every 14 (fourteen) days. - Active K-Tab 20 mEq tablet,extended release Take 1 tablet by mouth daily. - Active cyclobenzaprine 5 mg tablet TAKE 1 TABLET(5 MG) BY MOUTH THREE TIMES DAILY NEEDED FOR MUSCLE SPASMS - Active Synthroid 50 mcg tablet Take 1 tablet (5 0 mcg total) by mouth every morning. - Active Sleep Time 25 mg capsule Take 25 mg by m outh every 6 (six) hours as needed for Itching. - Active Lasix 20 mg tablet - Active atenolol 25 mg tablet - Active anastrozole (bulk) 100 % powder - Active Glucophage 500 mg tablet - Activ e gabapentin 100 mg capsule - Active Procedures Procedure Date X-ray exam tib/fib, 2 views Global/Postop followup visit X-ray exam tib/fib, 2 views X-ray exam knee, 4+ views Office/outpatient visit,est, mod 2022 Clsd Tx Prox/shaft Fib Fx Office/outpatient visit,est, mod 2021 Office/outpatient visit,est, mod 2021 X-ray exam Lumbar 2-3 views Global/Postop followup visit X-ray exam knee, 3 views Office/outpatient visit,new, mod 2021 Advance Directives Directive Yes / No Effective Date File Name No Information Encounters Encounter Description Practice Location Reason(s) For Visit Diagnoses Date Provider Providers Copied on Encounter [facility], [address], [place], [place], [id number], [place] tel:[phone] [facility] Right fibula (chief complaint) Pain in right knee 3 Francisco Perez. [address] [facility], [address], [place], [place], [id number] , [place]. tel:[phone] Referring Provider: Marcos Andrade, [address] [place] [address] [address], [place], [address] . tel:[phone] [facility], [address] [place] [address], [id number], tel:[phone] [facility] r leg (chief complaint) Nondisplaced comminuted fracture of shaft of right fibula, initial encounter for open fracture type I or II 3 Francisco Perez. [address] [address], [place], [place], [id number] , [place]. tel: [phone] Referring Provider: Marcos Andrade, [address] [place] [address], [place], [address] . tel:[phone] Office[place] visit[place]est[place] [facility], [address] [place] [address], [id number], [phone] [facility] r knee (chief complaint) Pain in right kneeNondisplaced comminuted fracture of shaft of right fibula, initial encounter for open fracture type I or IIContusion of right knee, initial encounter 3 Francisco Perez. [address] [address], [place], [place], [id number] , [place]. tel: [phone] Referring Provider: Marcos Andrade, [address] [place] [address], [place], [address] . tel:[phone] [facility], [address] [place] [address], [id number], [place] tel:[phone] [facility] No Information 2 Francisco Perez. [address] [place] [address], [id number] , [place]. tel:[phone] Office[place]pa [place]ient visit,est, [facility], [address] [place] [address], [id number], [place] tel:[phone] [facility] knee (chief complaint) Presence of left artificial knee joint Oct-2 2 Francisco Perez. [address] [address], [place], [place], [id number] , [place]. tel:[phone] Referring Provider: aMrcos Andrade, [address] [place] [address] [address], [place], [address] . tel:[phone] Office/outpa tient visit,est, mod [facility], [address] [address], [place], [place], [id number], [place] tel:[phone] [facility] Lumbar (chief complaint) lumbar spine (chief complaint) Low back pain, unspecifiedSpondy losis w/o myelopathy of lumbar regionUnspecified inflammatory spondylopathy, lumbar region Apr-0 2 Eva conteh. [address] [address], [place], [place], [id number] , [place]. tel:[phone] Referring Provider: Marcos Andrade, [address] [place] [address] [address], [place], [address] . tel:[phone] [facility], [address] [place] [address], [id number], [place] tel:[phone] [facility] No Information Sep-3 2 Francisco Perez. [address] [address], [place], [place], [id number] , [place]. tel:[phone] [facility], [address] [place] [address], [id number], [place] tel:[phone] [facility] knee (chief complaint) Presence of left artificial knee joint Sep-2 2 Francisco Perez. [address] [place] [address], [place], [place], [id number] , [place]. tel:[phone] Referring Provider: Marcos Andrade, [facility], [place], [address] . tel:[phone] [facility], [address], [id number], [place] [phone] [facility] Primary OA of left knee 2 Francisco Perez. [address] [facility], [place], [place], [id number] , [place]. tel: [phone] [facility], [address] [address], [place], [place], [id number], [place] tel:[phone] [facility] Primary OA of left knee 2 Francisco Perez. [address] [facility], [address], [place], [place], [id number] , [place]. tel: [phone] Office/outpa tient visit,[facility], [address] [address], [place], [place], [id number], [place] [phone] [facility] bilat knees (chief complaint) Pain in right kneePain in left kneePrimary OA of left kneePresence of right artificial knee joint 2 Francisco Perez. [address] [facility] [facility] [address], [place], [place], [id number] , [place]. tel: [phone] Referring Provider: Marcos Andrade, [address] [place] [address] [address], [place], [address] . tel:[phone] Family History Family Member Type Diagnosis Age At Onset Mother Problem (finding) Cancer, unknown Father Problem (finding) Hypertension Father Problem (finding) Osteoarthritis Brother Problem (finding) Hypertension Mother Problem (finding) Osteoarthritis Immunizations Vaccine Date Status Comments Fluzone High Dose - >Age 65 (Prefilled Syringe) administered Source: Other Provid er Payers Payer name Insurance type Covered constitution party ID Elisabeta renate(s) [employer] Medicare Advantage CI [id number] Social History Type Description Quantity Date Captured Comments Alcohol Use Details Unknown Caffeine Use Details Unknown Tobacco Use Status Current non-smoker Smoking Status Never smoker Sex Female Vital Signs Date / Time: Height Weight BMI Pulse Rate Blood Pressure Temperature Respiratory Rate Body Surface Area Head Circumference Head Circ. Percentile Wt./Kurtis. Percentile BMI percentile Pulse Ox Inhaled Ox 10:26 AM 64.00 in 106.594 kg (235.00 lbs) 40.3 4 kg/m eter (2) Chief Complaint And Reason For Visit From encounter dated '06/23/2023 10:20'. Right fibula (chief complaint) Reason For Referral Reason For Referral No Information Plan Of Treatment Date Type Action Status Referral Ordered: X-ray exam tib/fib, 2 views LT tibia ordered Referral Ordered: X-ray exam tib/fib, 2 views RT leg ordered Referral Ordered: Other spine, lumbar ordered Referral Ordered: X-ray exam Lumbar 2-3 views spine, lumbar ordered Referral Ordered: X-ray exam knee, 4+ views RT knee ordered Referral Ordered: X-ray exam knee, 3 views LT knee ordered History Of Present Illness Encounter Date Complaint History Of Prese nt Illness Right fibula r leg patient presents to the office today for follow up right tib fib fx r knee patient presents to the office today for evaluation of right knee pain l knee patient presents to the office today for follow up l tka lumbar spine Jazmin Marques is a pleasant 66-year-old female who presents for an evaluation of low back pain that has been present for 2 years. She has attended formal physical therapy in the past without significant improvement. Over the last 2 months, she has had a significant increase in her low back pain without any radiation to the lower extremities. The patient was treated with her primary care physician, who referred her to pain management in [place]. She was subsequently referred to spine surgery in [place]; however, she was told that it would be until 07/2022 before she could be seen. The patient presents today with acute on chronic low back pain despite formal physical therapy without radiation. Lumbar Jazmin comes in to the office for lumbar spine. l knee patient presents to the office today for follow up l tka bilat knees patient presents to the office today for evaluation of bilat knee pain Functional Status Date Functional Assessmen t No Information Instructions Date Instruction Additional Infor matdeonte Plan of Care:Jazmin Marques is a pleasant 66-year-old female who has foraminal disease, lateral recess stenosis, and advanced facet arthritis at L3-4, L4-5, and L5-S1. She has axial back pain that is mechanical. I am going to make a recommendation to pain management physicians for an evaluation for a medial branch block trial, as I do not have any surgical options. The patient will follow up with me on an as-needed basis.The medical record documentation of this provider's service encounter was entered by Mari Webb, acting as Director Drug for Jimmy Velasquez MD. Related to Unspecified inflammatory spondylopathy, lumbar region Assessments Type Assessment Date assessment Pain in right knee Patient Care Teams Name Effective Dates (start - stop) Status Members No Information
--- OUTSIDE RECORDS SUMMARY | 2025-02-28 12:11 | XMS_ITS | Clinical Summary ---
Author Organization [facility] Address [address] [place] [address] Care Team Providers Care Market Research Consultant Name Role Phone Marcos Andrade MD Primary Care Provider [phone] Allergies Active Allergy Reactions Criticality Noted Date Comments Chlorzoxazone Hives Medium Reaction: HIVES Medications DULoxetine DR (CYMBALTA) 60 mg capsule Take 60 mg by mouth nightly 1 Active gabapentin (NEURONTIN) 300 mg capsule Take 300 mg by mouth 3 (three) times a day 1 Active metFORMIN XR (GLUCOPHAGE XR) 500 mg 24 hr tablet Take 1,500 mg by mouth daily with lunch 1 Active atorvastatin (LIPITOR) 20 mg tablet Take 20 mg by mouth daily with lunch 1 Active metoprolol XL (TOPROL-XL) 50 mg extended release tablet Take 50 mg by mouth daily with lunch 1 Active furosemide (LASIX) 20 mg tablet Take 20 mg by mouth daily with lunch Active anastrozole (ARIMIDEX) 1 mg tablet Take 1 mg by mouth daily with lunch 2 Active potassium chloride ER (KLOR-CON) 20 mEq CR tablet Take 1 tablet by mouth daily with lunch 1 Active dulaglutide (Trulicity) 0.75 mg/0.5 mL pen injector Inject 0.75 mg under the skin once a week Tuesday mornings 2 Active diphenhydrAMINE (BENADRYL) 25 mg capsule Take 25 mg by mouth every 6 (six) hours as needed for sleep Active cholecalciferol (VITAMIN D-3) 5,000 unit tablet Take 5,000 Units by mouth daily with lunch Active docusate sodium (COLACE) 100 mg capsuleIndicati ons:constipatio n Take 1 capsule (100 mg total) by mouth 2 (two) times a day 60 capsule 2 Active Additional Information Patient not taking.Reported on 08/09/2022 hydrOXYzine (ATARAX) 25 mg tablet 2 Active LORazepam (ATIVAN) 0.5 mg tablet 2 Active levothyroxine (SYNTHROID) 50 mcg tablet Take 50 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 0 Active meloxicam (MOBIC) 15 mg tablet 2 Active tiZANidine (ZANAFLEX) 4 mg tabletIndicatio ns:Muscle Spasm Take 1 tablet (4 mg total) by mouth 2 (two) times a day as needed for muscle spasms 20 tablet 1 3 Active Active Problems Problem Noted Date Diagnosed Date Primary osteoarthritis of left knee 03/19/2022 Hypokalemia 12/08/2013 Overview (10/27/2016): Hypokalemia Benign hypertension 12/08/2013 Overview (10/27/2016): BENIGN HYPERTENSION Chronic nonalcoholic liver disease 12/08/2013 Overview (10/27/2016): CHRONIC LIVER DIS NEC Diabetes mellitus 12/08/2013 Overview (10/28/2016): Diabetes mellitus Immunizations Immunization Administration Dates Next Due Influenza, Trivalent, IM (MDV) 06/18/2011 Surgical History Surgery Date Site/Laterality Comments OTHER SURGICAL HISTORY knee osteoarthritis: surgery X 3 CHOLECYSTECTOMY Cholecystectomy OTHER SURGICAL HISTORY 07/25/2002 - 07/24/2003 Osteoarthritis: Right TKA, 2010 resurfacing LASAROSCOPIC SUPRACERVICAL HYSTERECTOMY W/ BILATERAL SALPINGOOPHORECTOMY BREAST LUMPECTOMY Right x 2 with radiation LIPOMA RESECTION Right upper arm GASTROPLASTY Medical History Medical History Date Comments Hx Other Medical knee osteoarthr itis Hx Other Medical Gastroplasty Hx Other Medical Hyperglycemia Hypertension Hypertension Osteoarthritis 2002 Osteoarthritis Type 2 diabetes mellitus Hyperlipidemia Spinal stenosis Fatty liver Depression Cancer (HCC) breast CA Low back pain Chronic pain disorder Family History Medical History Relation Name Comments Coronary artery disease Father Pérez nary artery disease; Hypertension Father Hypertension; Other Mother 2 Alive and well; Relation Name Status Comments Father Mother 1 Alive Mother 2 Social History Tobacco Use Types Packs/Day Years Used Date Smoking Tobacco: Never Smokeless Tobacco: Never Tobacco Cessation:Counseling Given: Not Answered Alcohol Use Standard Drinks/Week Comments No 0 (1 standard drink = 0.6 oz pur e alcohol) AUDIT-C Answer Date Recorded Frequency of Alcohol Consumption Not on file 08/09/2022 Q2: How many drinks containi ng alcohol do you have on a typical day when you are drinking? 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 Gender Identity Not on file Sexual Orientation Not on file Obstetrics History Last Filed Vital Signs Vital Sign Reading Time Taken Comments Blood Pressure 124/70 09/23/2022 12:00 PM SYNTHETIC CHEMIST Pulse 106 09/23/2022 12:00 PM SYNTHETIC CHEMIST Temperature 36.3 C (97.3 F) 09/23/2022 10:43 AM SYNTHETIC CHEMIST Respiratory Rate 16 09/23/2022 12:00 PM SYNTHETIC CHEMIST Oxygen Saturation 98% 09/23/2022 12:00 PM SYNTHETIC CHEMIST Inhaled Oxygen Concentration - - Weight 108.9 kg (240 lb) 09/23/2022 10:43 AM SYNTHETIC CHEMIST Height 162.6 cm (5' 4) 09/23/2022 10:43 AM SYNTHETIC CHEMIST Body Mass Index 41.2 09/23/2022 10:43 AM SYNTHETIC CHEMIST Plan of Treatment Health Maintenance Due Date Last Done Comments Albumin Creatinine Ratio, Urine 1955 Breast Cancer Screening-Mammogram 1955 Colon Cancer Screening-Colonoscopy 1955 Depression Screening 1955 Hemoglobin A1C 1955 Hepatitis C Screening 1955 Osteoporosis Screening-Bone Density Scan 1955 Dilated Eye Exam 1955 Foot Exam 1955 Lipid Panel 1955 DTaP/Tdap/Td Vaccine (1 - Tdap) 1966 Hepatitis B Screening 1973 Pneumococcal vaccine 65+ (1 of 2 - PCV) 1974 Zoster Vaccine (1 of 2) 1974 Well Visit 65+ 2020 eGFR 03/20/2023 03/20/2022, 03/16/2022 Fall Risk Assessment 09/24/2023 09/23/2022 Covid-19 Vaccine (5 - 2023-2 5 season) 2024 10/29/2021, 06/17/2021, 09/26/2020, Additional history exists Influenza Vaccine (#1) 2025 , 05/16/2020, 04/24/2019, Additional history exists Goals Goal Patient Goal Type Associated Problems Recent Progress Patient-Stated? Author CCM Chronic Pain Care Plan Chronic Care Management No Irwin Go, RN Note: Problem: Chronic Pain Goals: 1. Minimize further functional decline 2. Maximize quality of life 3. Control pain Strategies: - Activity/exercise program recommendation - Conservative stepwise pain medicine strategy with multi-disciplinary approach - Recommend healthy lifestyle strategies and compensatory methods as needed Reduce the likelihood of falling Lifestyle No Irwin Go, RN Note: Below are four things you can do to prevent falls: Begin an exercise program to improve your leg strength & balance Ask your doctor or pharmacist to review your medicines Get annual eye check-ups & update your eyeglasses Make your home safer by: Removing clutter & tripping hazards Putting railings on all stairs & adding grab bars in the bathroom Having good lighting, especially on stairs Contact your local community or senior center for information on exercise, fall prevention programs, or options for improving home safety. Medical Devices Implanted Type Area Unloader Operator Device Identifier Shelf Expiration Date Model / Serial / Lot [employer] Simplex P Radiopaque Full Dose Cement Bone Sterile 6191-1-010 - [id number] Implanted:Qty: 1 on 03/19/2022 by Chris Singh MD at [facility] Left: Knee [employer] 07/24/2024 6191-1-01 [id number] / / [id number] [employer] Vanguard 62.5mm Cruciate Retaining Primary Knee Left Component [id number] - [id number] Implanted:Qty: 1 on 03/19/2022 by Chris Singh MD at [facility] Left: Knee [employer] [id number] 01/21/2032 [id number] / / [id number] [employer] Ascent Maxim 71mm 1 Piece Cruciate Fin Knee Tray Tibial Interlok [id number] - [id number] Implanted:Qty: 1 on 03/19/2022 by Chris Singh MD at [facility] Left: Knee [employer] [id number] 02/04/2032 [id number] / / [id number] [employer] Vanguard 71/[id number] Cruciate Retain Direct Compression Mold [id number] - [id number] Implanted:Qty: 1 on 03/19/2022 by Chris Singh MD at [facility] Left: Knee [employer] [id number] 10/16/2026 [id number] / / [id number] Procedures Procedure Name Priority Date/Time Associated Diagnosis Comments EGFR Routine 03/20/2022 5:42 AM CDT from Last 3 Months or Most Recently Relevant to Health Maintenance Results * eGFR (03/20/2022 5:42 AM CDT) eGFR 34 mL/min/1. 73 m2 [facility] Comment: Interpretive Data Reference Interval Normal >/= 90 mL/min/1.73m2 Mildly decreased* 60 - 89 mL/min/1.73m2 Mildly to moderately decreased 45 - 59 mL/min/1.73m2 Moderately to severely decreased 30 - 44 mL/min/1.73m2 Severely decreased 15 - 29 mL/min/1.73m2 Kidney Failure < 15 mL/min/1.73m2 *Relative to young adult level Estimated glomerular filtration rate is determined by the 2020 CKD-EPI equation recommended by the National Kidney Foundation (A Unifying Approach to GFR Estimation: Recommendations of the NKF-ASK Task Force on Reassessing the Inclusion of Race in Diagnosing Kidney Disease, JASN 2020). The CKD-EPI equation should not be used for patients with unstable renal function and has not been validated in children and those over 70. Current interpretive data was last reviewed 2021. Blood 03/20/2022 5:42 AM CDT 03/20/2022 5:58 AM CDT us Chris Singh MD LAB BLOOD ORDERABLES Final R esult [facility] [address] Department [place] [address] from Last 3 Months or Most Recently Relevant to Health Maintenance Insurance [facility] MEDICARE ADVANTAGE [facility] MEDICARE Address: [address] [address] [place] [address] [facility] MEDICARE ADVANTAGE [facility] MEDICARE Address: [address] [address] [place] [address] [facility] MDCR HMO REF Advance Directives For more information, please contact: [phone] * Full Code (Latest Code Status on File) Date Activated Date Inactivated Comments 03/19/2022 5:18 PM 03/20/2022 5:26 PM Care Teams Market Research Consultant Relationship Specialty Start Date End Date Marcos Andrade MD [address] [place] [address] PCP - General Internal Medicine 05/05/22
--- OUTSIDE RECORDS SUMMARY | 2025-02-28 12:11 | XMS_ITS | Clinical Summary ---
Author Organization [facility] Address [address] [place] [address] Care Team Providers Care Foreign Exchange Position Clerk Name Role Phone Marcos Andrade MD Primary Care Provider [phone] Source Comments [facility],non-owned Affiliates and Associated Physician Practices is amultiple site organization consisting of ambulatory clinics and hospital sitesin [place], [place], [place] and [place]. This disclosure is being madepursuant to the Care Everywhere program and may not contain all information available regarding this patient. 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 Gender Identity Not on file Sexual Orientation Not on file Plan of Treatment Health Maintenance Due Date Last Done Comments BONE DENSITY TESTING 1955 COLOGUARD (AGES 45-75) - COL ON CA SCREENING 1955 COLON MONITORING 1955 COLONOSCOPY - COLON CA SCREENING 1955 CT COLONOGRAPHY - COLON CA SCREENING 1955 Colorectal Cancer Screening 1955 FIT - COLON CA SCREENING 1955 FLEX SIG - COLON CA SCREENING 1955 LIPID TESTING 1955 MAMMOGRAM 1955 HEPATITIS C SCREENING 07/28/1973 DTAP/TDAP/TD VACCINES (1 - Tdap) 1974 PNEUMOCOCCAL VACCINE 50+ (1 of 1 - PCV) 2005 ZOSTER VACCINE (1 of 2) 2005 COVID-19 VACCINE ( - 2023-2 5 season) 2024 DEPRESSION SCREENING 07/25/2024 INFLUENZA VACCINE (#1) 2025 Respiratory Syncytial Virus (RSV) Vaccine Pt: or over 60 yrs (1 - 1-dose 75+ series) 2030 HEPATITIS B VACCINE Aged Out No longe r eligible based on patient's age to complete this topic HIB VACCINE Aged Out No longer eligi ble based on patient's age to complete this topic HPV VACCINE Aged Out No longer eligi ble based on patient's age to complete this topic MENINGOCOCCAL (Group B) VACC INE SHARED DECISION-MAKING Aged Out No longer eligibl e based on patient's age to complete this topic MENINGOCOCCAL GROUPS A/C/Y/W VACCINE Aged Out No longer eligible b ased on patient's age to complete this topic Insurance MANAGED MEDICARE ADV Care Teams Foreign Exchange Position Clerk Relationship Specialty Start Date End Date Marcos Andrade MD [address] [place] [id number] PCP - General 06/08/21
[2025-02-28 13:08] LABS: Hematocrit 46.4 % (37.0-47.0); Hemoglobin 15.8 g/dL (12.0-15.0); Immature Granulocyte Percent A 0.6 % (0-0.5); Lymphocytes Absolute Auto 1.26 K/mm3 (0.9-3.2); Mean Corpuscular HGB Conc 34.1 g/dl (32-36); Mean Corpuscular Hemoglobin 31.3 pg (26-34); Mean Corpuscular Volume 91.9 fl (80-100); Nucleated Red Blood Cells Absolute Auto 0.000 K/mm3 (0.0-0.012); Nucleated Red Blood Cells Perc 0.0 % (0.0-0.2); Platelet Count Result 314 k/mm3 (150-375); Red Blood Count 5.05 M/mm3 (4.2-5.4); White Blood Count 9.6 K/mm3 (4.5-10.0)
[2025-02-28 13:11] LABS: Blood Urea Nitrogen 16 mg/dL (8-26); Carbon Dioxide 30 mmol/L (22-30); Chloride 96 mmol/L (98-109); Estimated Glomerular Filt Rate 41; Glucose 136 mg/dL (70-105); Ionized Calcium (POC) 1.13 mmol/L (1.11-1.31); Potassium 3.9 mmol/L (3.5-4.9); Sodium 137 mmol/L (138-146)
[2025-02-28 17:16] LABS: Alanine Aminotransferase 10 U/L (6-35); Albumin Level 3.9 g/dL (3.5-5.1); Alkaline Phosphatase 92 U/L (38-126); Anion Gap 10 mmol/L (4-12); Aspartate Amino Transferase 31 U/L (14-36); Bilirubin,Total 1.1 mg/dL (0.2-1.3); Blood Urea Nitrogen 17 mg/dL (7-17); Calcium 9.3 mg/dL (8.4-10.2); Carbon Dioxide 30 mmol/L (22-30); Chloride 97 mmol/L (98-107); Estimated Glomerular Filt Rate 46; Glucose 133 mg/dL (65-110); Potassium 4.0 mmol/L (3.4-5.0); Sodium 137 mmol/L (137-145); Total Protein 6.8 g/dL (6.3-8.2)
== END 2025-02-28 12:04 | disposition home or self-care (01) ==
LOC: ANHLAB 12:08
PROVIDERS: PCP Internal Medicine; Visit Provider Internal Medicine Hematology & Oncology
DX: D05.11 Intraductal carcinoma in situ of right breast (principal)
CPT/HCPCS: 36415; 80047; 80053; 85025